=== PATIENT | male | born 1960 | race Caucasian/White ===

== ENCOUNTER 2017-04-26 09:46 | Emergency (ER) | payer MEDICARE, MEDICAID ==
[2017-04-26] MEDS ORDERED: ACETAMINOPHEN 325 MG TABLET PO ONE (09:57)
[2017-04-26] MEDS ORDERED: ACETAMINOPHEN 325 MG TABLET ONE (09:58)
--- NOTE | 2017-04-26 10:03 | ERNOTE ---
Back Pain ER HPI Date of Service: 04/26/17 Presenting Symptoms: other - back pain Time Seen by Provider: 04/26/17 09:52 Source: patient, family Exam Limitations: no limitations Immunizations: IMMUNIZATION HX History of Influenza Vaccine Yes Allergies/Adverse Reactions: Allergies No Known Allergies Allergy (Verified 04/26/17 09:51) Home Medications: HOME MEDICATIONS Albuterol Sulfate [Albuterol Sulfate 2.5 MG/3 ML] 2.5 mg IH Q4H 04/26/17 [Last Taken Unknown] Aspirin 81 mg PO BID 04/26/17 [Last Taken Unknown] Calcium Carbonate [Calcium] 600 mg PO DAILY 04/26/17 [Last Taken Unknown] Cetirizine HCl [Zyrtec] 10 mg PO DAILY 04/26/17 [Last Taken Unknown] Docusate Sodium 100 mg PO BID 04/26/17 [Last Taken Unknown] Fluticasone Propionate [Flovent Hfa] 220 mcg IH BID 04/26/17 [Last Taken Unknown ] Levofloxacin [Levaquin] 500 mg PO DAILY #9 tab 04/26/17 [Last Taken Unknown] Montelukast Sodium [Singulair] 10 mg PO DAILY 04/26/17 [Last Taken Unknown] Ranitidine HCl [Zantac] 150 mg PO BID 04/26/17 [Last Taken Unknown] metFORMIN HCL [Glucophage] 850 mg PO BIDWM 04/26/17 [Last Taken Unknown] Narrative: Patient presents to the ED with upper back pain along the spine this mornign. He localizes it to the left back. Hurts to move and touch the area but not to breath. No CP or SOB. no abdominal pain. no urinary Sx. pain moderate with turning. Will get some occasional pains here but this seems worse. No falls or trauma. No fever or cough. No N/T/W. Timing: Reports: constant Quality/Severity: Reports: moderate Location of pain: Reports: upper back. Denies: radiating to rt thigh/leg, radiating to lf thigh/leg Activities at Onset: Reports: none Recent Injury?: Reports: no Possible Precipitating Factor: Reports: none Modifying Factors - (Improves): Reports: other - rest Modifying Factors - (Worsens): Reports: movement to right, movement to left. Denies: cough/deep breaths Associated Symptoms: Denies: fever/chills, constipation/incontinence, nausea/ vomiting, problems urinating, difficulty walking, numbess/weakness in legs Prior Treament: Denies: recently seen Review of Systems - Review of Systems Constitutional: Absent: fever ENT: Absent: sore throat Respiratory: Absent: shortness of breath, cough Cardiology: Absent: chest pain Gastrointestinal/Abdominal: Absent: abdominal pain Genitourinary: Absent: dysuria Musculoskeletal: Present: See HPI Skin: Absent: rash Neurological: Absent: weakness, numbness, tingling - Patient's Past Medical History Patient History - Cancer: No Hx of Cancer Patient History - Surgical Procedures: Gastric Bypass, Total Knee Replacement - Family History Father Family History - Medical: Diabetes Type 2 Insulin Dependent, Depression Family History - Cardiac/Respiratory: Hypertension Family History - Cancer: Melanoma Mother Family History - Medical: Anxiety, Depression Family History - Cardiac/Respiratory: Hypertension Family History - Cancer: No pertinent family hx - Social History Living Situations: home Psych History: No pertinent hx Alcohol Use: none Drug Use: none - Immunizations History of Influenza Vaccine: Yes Physical Exam - Physical Exam General Appearance: Present: alert, no apparent distress Head Exam: Present: normal inspection, no evidence of injury Eye Exam: Normal inspection: bilateral, PERRL: bilateral Ears, Nose, Throat: Present: normal ENT inspection Neck: Absent: tender posterior midline Respiratory: Present: no respiratory distress, normal breath sounds, no accessory muscle use, lungs clear Cardiovascular/Chest: Present: regular rate, rhythm, normal peripheral pulses Gastrointestinal/Abdominal: Present: normal bowel sounds, nontender, nondistended, soft Back Exam: Present: other - scoliosis noted. Old scar from spinal surgery. Thre is completeyl reproducible tendenress left paraspinal musculature. Palpation here completely reproduces his pain. Clinically this is muscular pain. No spinal tendenress. Extremity Exam: Present: normal inspection Neurological Exam: Present: alert, no motor/sensory deficits, other - walks with a cane but no clear acute focal motor or sensory deficits/ Skin Exam: Present: normal color, warm/dry, other - no shingles. Absent: skin rash ED Progress - Results and Orders Patient's Lab Results:: I have reviewed the patient's lab results. - Vital Signs Patient's Vital Signs:: I have reviewed the patient's vital signs. Vital Signs: Vital Signs 04/26/17 09:49 Temperature 36.0 C L Pulse Rate 70 Respiratory 12 Rate Blood Pressure 215/104 O2 Sat by Pulse 96 Oximetry - EKG EKG: NSR EKG read: Interp. by me EKG Comments: NSR rate 61. No evidence of STEMI. No ischemic changes. - X-Ray X-Ray #1 X-Ray: chest Interpretation: Interp. by me X-ray Comments: I reviewed official radiology report. - Progress/Reassessment Chief Complaint: Back Pain Progress Note-Subjective: 04/26/17 11:04 Pneumonia on CXR, will treat with ABx. No hypoxia, distress, sepsis or other acute life threat found. Stable for outpatient management. I discussed warning signs and reasons to return as well as the need for close f/u. Departure Clinical Impression: Back pain, Pneumonia - Departure Disposition: Home self-care Condition: Stable Instructions: Community-Acquired Pneumonia, Adult, [id number] Additional Instructions: Rest. Fluids. Follow-up with your doctor within 3 days for a re-check. Return for trouble breathing or if your condition worsens or changes in any way. Referrals: Tim Sharp MD [Primary Care Provider] - Prescriptions: Levofloxacin [Levaquin] 500 mg PO DAILY #9 tab
[2017-04-26 10:10] LABS: Hematocrit 36.7 % (42.0-52.0); Hemoglobin 11.6 gm/dL (13.5-18.0); Mean Cell Volume 78.9 fl (78-100); Mean Corpuscular Hemoglobin 24.9 pg (27-31); Mean Corpuscular Hgb Conc 31.6 g/dl (32-36); Mean Platelet Volume 8.4 fl (6.0-9.5); Neutrophil # 5.6 K/mm3 (1.3-6.0); Neutrophil % 65.4 % (42-75.0); Platelet Count 255 K/mm3 (150-450); Red Blood Count 4.65 M/mm3 (4.7-6.0); Red Cell Distribution Width 18.4 % (11.5-14.0); White Blood Count 8.5 K/mm3 (4.0-10.5)
[2017-04-26 10:32] LABS: ALT 27 U/L (19-67); AST 20 U/L (0-48); Albumin * 4.1 gm/dl (3.4-5.0); Alkaline Phosphatase * 77 U/L (50-170); Anion Gap 11.7 mmol/L (6.8-13.8); BUN/Creatinine Ratio 15.7 (9.0-21.6); Bilirubin, Total 0.3 mg/dL (0.0-1.1); Blood Urea Nitrogen 8 mg/dL (6-23); Ca. Corrected For Albumin 8.9 mg/dL (8.4-10.2); Calcium * 9.3 mg/dL (7.9-10.9); Carbon Dioxide 29.4 mmol/L (24-32.6); Chloride 97 mmol/L (97-106); Glucose * 101 mg/dL (70-110); Potassium 4.1 mmol/L (3.4-4.6); Sodium 134 mmol/L (132-142); Total Protein 7.8 gm/dL (6.2-8.2)
[2017-04-26 10:33] LABS: Troponin I Less than 0.017 ng/ml (0.00-0.10)
[2017-04-26 10:50] VITALS: BP 192/88
[2017-04-26] MEDS ORDERED: LEVOFLOXACIN 500 MG TABLET PO ONE (11:03)
[2017-04-26] MEDS ORDERED: LEVOFLOXACIN 500 MG TABLET ONE (11:06)
== END 2017-04-26 11:11 | disposition home or self-care (01) ==
LOC: ER 09:46
DX: J18.9 Pneumonia, unspecified organism (principal); M54.6 Pain in thoracic spine

== ENCOUNTER 2017-10-23 07:40 | Observation (INO) | payer MEDICAID, MEDICARE ==
--- NOTE | 2017-10-23 08:17 | ERNOTE ---
Medical Problem HPI - General Chief Complaint: General Assessment Time Seen by Provider: 10/23/17 07:59 Source: family Exam Limitations: other - Immun/Allergies/Home Medications Immunizations: IMMUNIZATION HX Immunizations Up to Date Yes History of Influenza Vaccine Yes Hx Pneumococcal Vaccination More Information Required Allergies/Adverse Reactions: Allergies No Known Allergies Allergy (Verified 10/23/17 07:49) Home Medications: HOME MEDICATIONS Aspirin 81 mg PO BID 04/26/17 [Last Taken 08/28/17] Cetirizine HCl [Zyrtec] 10 mg PO HS 04/26/17 [Last Taken 08/27/17] Docusate Sodium 100 mg PO BID PRN 04/26/17 [Last Taken 08/28/17] Fluticasone Propionate [Flovent Hfa] 220 mcg IH BID 04/26/17 [Last Taken ] Ranitidine HCl [Zantac] 150 mg PO BID 04/26/17 [Last Taken 08/28/17] metFORMIN HCL [Glucophage] 850 mg PO BIDWM 04/26/17 [Last Taken 08/28/17] Calcium Carbonate/Vitamin D3 [Calcium 500-Vit D3 200 Tablet] 1 ea PO DAILY 05/17 [Last Taken 08/28/17 08:00] Metoprolol Tartrate [Lopressor] 100 mg PO BID 05/17/17 [Last Taken 08/28/17 08: 00] Multivitamin [Multivitamins] 1 ea PO DAILY 05/17/17 [Last Taken 08/28/17 08:00] amLODIPine BESYLATE [Norvasc] 10 mg PO DAILY 05/17/17 [Last Taken 08/28/17 08:00 ] Albuterol Sulfate/Ipratropium [Duoneb 2.5-0.5MG/3ML Soln] 3 ml IH Q4HRT #60 nebu 05/20/17 [Last Taken 08/28/17] Furosemide 20 mg PO DAILY 06/30/17 [Last Taken 08/28/17 08:00] Potassium Chloride [Klor-Con 10] 10 meq PO DAILY 06/30/17 [Last Taken 08/28/17 08:00] Acetaminophen [Tylenol] 650 mg PO Q4H PRN tab 08/30/17 [Last Taken Unknown] Azithromycin [Zithromax] 250 mg PO DAILY #3 tab 08/30/17 [Last Taken Unknown] Cefdinir [Omnicef] 300 mg PO BID #16 cap 08/30/17 [Last Taken Unknown] polysaccharide iron complex 150 mg iron capsule 150 mg PO DAILY cap 09/01/17 [ Last Taken Unknown] sennosides 8.6 mg tablet 17.2 mg PO DAILY PRN tab 09/01/17 [Last Taken Unknown] sodium chloride 3 % for nebulization 4 ml IH Q6H 09/20/17 [Last Taken Unknown] montelukast 10 mg tablet 10 mg PO HS 30 Days #30 tab 09/23/17 [Last Taken Unknown] - History of Present History Narrative: Patient has a history of Prader-Nazario, diabetes, and an aortic dissection. He has chronic respiratory failure (using O2 2-3 liters at night) and has been having recurrent bouts of pneumonia over the last six months, last treated with antibiotics in August. Per family the pneumonia is related to reflux and aspiration. He is currently waiting awaiting treatment for his aortic dissection at [place]. This morning the family noticed bloody discharge around the trach side and they are concerned that he might be developing pneumonia again as that has been an early sign in the past. They deny any significant cough, no fever, no shortness of breath. He seems to be less active and sleeping more Date (Duration): 10/23/17 Review of Systems - Narrative Narrative: limited by mental retardation - Review of Systems Constitutional: Present: fatigue. Absent: recent illness, fever ENT: Absent: nasal drainage, sore throat Respiratory: Present: See HPI. 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) Onset Date: ~08/31/15 Sleep apnea (Chronic) Anemia (Chronic) Onset Date: ~09/11/12 Diabetes mellitus (Chronic) Asthma (Chronic) Pickwickian syndrome (Chronic) Onset Date: ~09/11/12 Prader-Willi syndrome (Chronic) Onset Date: ~09/11/12 Aortic dissection Back pain CHF (congestive heart failure) Hx of gastric bypass Obstructive sleep apnea Pneumonia Recurrent pneumonia Tracheostomy in place Eating disorder Surgical History: Surgical History (Last Reviewed 10/23/17 @ 08:16 by Francia Salinas MD) Femur fracture H/O gastric bypass Onset Date: ~1975 H/O heart surgery Onset Date: ~04/29/17 H/O tracheostomy History of right knee joint replacement Family History: Family History (Last Reviewed 09/25/17 @ 10:57 by Tim Sharp MD) Other Father Diabetes, depression mother with Anxiety nd Hypertension mother with depression Social History: Preferred Language Egyptian Abuse History No History of abuse Psych History No pertinent hx Alcohol Use none Drug Use none Physical Exam - Physical Exam General Appearance: Present: obese, sleeping/easy to arouse Head Exam: Present: normal inspection Eye Exam: Normal inspection: bilateral Ears, Nose, Throat: Present: normal pharynx Respiratory: Present: no respiratory distress, lungs clear, decreased breath sounds Cardiovascular/Chest: Present: regular rate, rhythm, no murmur Gastrointestinal/Abdominal: Present: nontender Neurological Exam: Present: alert Skin Exam: Present: normal color, warm/dry ED Progress - Results and Orders Patient's Lab Results:: I have reviewed the patient's lab results. - Vital Signs Patient's Vital Signs:: I have reviewed the patient's vital signs. - when sleeping his O2 sat drops to 88-89% Vital Signs: Vital Signs 10/23/17 07:45 10/23/17 07:48 10/23/17 08:04 Temperature 36.1 C Pulse Rate 89 89 83 Respiratory Rate 14 14 14 Blood Pressure 136/74 136/74 O2 Sat by Pulse Oximetry 94 94 90 L - X-Ray X-Ray #1 X-Ray: chest - large left sided pneumonia Interpretation: Interp. by me - Progress/Reassessment Chief Complaint: General Assessment Progress Note-Subjective: 10/23/17 09:26 discussion with family about Xray and labs, offered admission, family agreed long discussion about code status, as patient has ruptured aortic aneurysm, family ready to sign DNR orders 10/23/17 09:[address] Rowland 10/23/17 09:[address] Rowland, okay to admit for observation, will start rocephin and zithromax going by sensitivities of sputum culture from August Clinical Impression: Aortic aneurysm with dissection, Prader-Willi syndrome, Pickwickian syndrome Pneumonia Qualifiers: Pneumonia type: due to unspecified organism Laterality: left Lung location: upper lobe of lung Qualified Code(s): J18.1 - Lobar pneumonia, unspecified organism Respiratory failure with hypoxia Qualifiers: Chronicity: chronic Qualified Code(s): J96.11 - Chronic respiratory failure with hypoxia - Departure Disposition: Still a patient Condition: Good
[2017-10-23 08:30] LABS: Hemoglobin 12.1 gm/dL (13.5-18.0); Mean Cell Volume 87.8 fl (78-100); Mean Corpuscular Hemoglobin 27.3 pg (27-31); Mean Platelet Volume 8.4 fl (8-11.3); Neutrophil # 16.3 K/mm3 (1.3-6.0); Neutrophil % 91.7 % (42-75.0); Platelet Count 239 K/mm3 (150-450); Red Blood Count 4.44 M/mm3 (4.7-6.0); Red Cell Distribution Width 14.8 % (11.5-14.0); White Blood Count 17.7 K/mm3 (4.0-10.5)
[2017-10-23 08:50] LABS: Albumin * 3.4 gm/dl (3.4-5.0); Anion Gap 8.2 mmol/L (6.8-13.8); Bilirubin, Total 0.5 mg/dL (0.0-1.1); CRP 1.4 mg/dL (0.0-0.9); Ca. Corrected For Albumin 8.6 mg/dL (8.4-10.2); Calcium * 8.4 mg/dL (7.9-10.9); Carbon Dioxide 31.7 mmol/L (24-32.6); Potassium 3.9 mmol/L (3.4-4.6); Total Protein 7.1 gm/dL (6.2-8.2)
[2017-10-23] MEDS ORDERED: AZITHROMYCIN 250 MG TABLET PO STA (09:47)
[2017-10-23] MEDS ORDERED: AZITHROMYCIN 250 MG TABLET ONE (09:52)
[2017-10-23] MEDS ORDERED: ALBUTEROL SULFATE/IPRATROPIUM 3 ML NEBU IH ONE (18:24)
[2017-10-23] MEDS ORDERED: DOCUSATE SODIUM 100 MG CAPSULE PO PRN (18:31)
[2017-10-23] MEDS ORDERED: ACETAMINOPHEN 325 MG TABLET PO PRN (18:31)
[2017-10-23] MEDS ORDERED: SENNOSIDES 8.6 MG TABLET PO PRN (18:31)
[2017-10-23] MEDS ORDERED: FUROSEMIDE 40 MG TABLET ONE (19:01)
[2017-10-23] MEDS ORDERED: amLODIPine BESYLATE 5 MG TABLET ONE (19:03)
[2017-10-23] MEDS: POTASSIUM CHLORIDE 10 MEQ TABLET.SA PO SCH (19:06)
[2017-10-23] MEDS: FUROSEMIDE 20 MG TABLET PO SCH (19:07)
[2017-10-23] MEDS: IRON POLYSACCHARIDE COMPLEX 1 CAP CAPSULE PO SCH (19:08)
[2017-10-23] MEDS: amLODIPine BESYLATE 10 MG TABLET PO SCH (19:09)
[2017-10-23] MEDS: FAMOTIDINE 20 MG TABLET PO SCH (19:09)
[2017-10-23] MEDS: ALBUTEROL SULFATE/IPRATROPIUM 3 ML NEBU IH SCH ×2 (19:56→22:38)
[2017-10-23] MEDS: BUDESONIDE 0.5 MG/2 ML VIAL.NEB IH SCH (19:57)
[2017-10-23] MEDS: SODIUM CHLORIDE FOR INHALATION 4 ML VIAL.NEB IH SCH (20:24)
[2017-10-23] MEDS ORDERED: MONTELUKAST SODIUM 10 MG TABLET PO SCH (21:00)
[2017-10-23] MEDS ORDERED: LORATADINE 10 MG TABLET PO SCH (21:00)
[2017-10-23] MEDS: ASPIRIN 81 MG TAB.CHEW PO SCH (21:24)
[2017-10-23] MEDS: METOPROLOL TARTRATE 50 MG TABLET PO SCH (21:25)
--- NOTE | 2017-10-23 22:58 | HP ---
Chief Complaint - Chief Complaint Date of Service: 10/23/17 Time of Service: 18:00 Chief Complaint: Bloody sputum History of Present Illness: Philip is a 57 yo male with a chronic trach that was brought to the [facility] ER with bloody sputum from his trach. He and family report increased sputum over the last few days and today they first noticed bloody sputum. He has had this in the past and it usually meant pneumonia, therefore they brought him to the ER. Chest xray in the ER does indicate left lung pneumonia and he has elevated WBC of 17k. No fever or chills. 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) Onset Date: ~08/31/15 Sleep apnea (Chronic) Anemia (Chronic) Onset Date: ~09/11/12 Diabetes mellitus (Chronic) Asthma (Chronic) Pickwickian syndrome (Chronic) Onset Date: ~09/11/12 Prader-Willi syndrome (Chronic) Onset Date: ~09/11/12 Aortic dissection Back pain CHF (congestive heart failure) Hx of gastric bypass Obstructive sleep apnea Pneumonia Recurrent pneumonia Tracheostomy in place Eating disorder Surgical History: Surgical History (Last Reviewed 10/31/17 @ 10:04 by Tim Sharp MD) Femur fracture H/O gastric bypass Onset Date: ~1975 H/O heart surgery Onset Date: ~04/29/17 H/O tracheostomy History of right knee joint replacement Family History: Family History (Last Reviewed 10/31/17 @ 10:04 by Tim Sharp MD) Other Father Diabetes, depression mother with Anxiety nd Hypertension mother with depression Social History: Patient Lives/Resources With Parents Utilized Preferred Language Ethiopian Do you have any yazidi or Yes: Adventism cultural preference? Smoking Status Never smoker Have you smoked in the past 12 No months Do you dip or chew tobacco No Abuse History No History of abuse Psych History No pertinent hx Alcohol Use none Drug Use none Review Of Systems (GEN) - Review of Systems Generalized/Overall Review: Present: Weakness. Absent: Chills, Fever EENTM: Present: No Symptoms Reported Respiratory: Present: Cough, Shortness of Breath Cardiac: Absent: Chest Pain, Edema Abdominal: Present: No Symptoms Reported Genitourinary: Present: No Symptoms Reported Musculoskeletal: Present: No Symptoms Reported Neurological: Present: No Symptoms Reported Skin: Present: No Symptoms Reported Endocrine: Present: No Symptoms Reported Immunizations: IMMUNIZATION HX Immunizations Up to Date Yes History of Influenza Vaccine Yes Hx Pneumococcal Vaccination More Information Required Allergies/Adverse Reactions: Allergies Allergy/AdvReac Type Severity Reaction Status Date / Time No Known Allergies Allergy Verified 10/31/17 09:42 Home Medications: HOME MEDICATIONS Aspirin 81 mg PO BID 04/26/17 [Last Taken 10/22/17] Cetirizine HCl [Zyrtec] 10 mg PO HS 04/26/17 [Last Taken 10/22/17] Docusate Sodium 100 mg PO BID PRN 04/26/17 [Last Taken 10/22/17] Fluticasone Propionate [Flovent Hfa] 220 mcg IH BID 04/26/17 [Last Taken ] Ranitidine HCl [Zantac] 150 mg PO BID 04/26/17 [Last Taken 10/22/17] metFORMIN HCL [Glucophage] 850 mg PO BIDWM 04/26/17 [Last Taken 10/22/17] Calcium Carbonate/Vitamin D3 [Calcium 500-Vit D3 200 Tablet] 1 ea PO DAILY 05/17 [Last Taken 10/22/17] Metoprolol Tartrate [Lopressor] 100 mg PO BID 05/17/17 [Last Taken 10/22/17] Multivitamin [Multivitamins] 1 ea PO DAILY 05/17/17 [Last Taken 10/22/17] amLODIPine BESYLATE [Norvasc] 10 mg PO DAILY 05/17/17 [Last Taken 10/22/17] Albuterol Sulfate/Ipratropium [Duoneb 2.5-0.5MG/3ML Soln] 3 ml IH Q4HRT #60 nebu 05/20/17 [Last Taken 10/22/17] Potassium Chloride [Klor-Con 10] 10 meq PO DAILY 06/30/17 [Last Taken 10/22/17] Acetaminophen [Tylenol] 650 mg PO Q4H PRN tab 08/30/17 [Last Taken Unknown] polysaccharide iron complex 150 mg iron capsule 150 mg PO DAILY cap 09/01/17 [ Last Taken 10/22/17] sennosides 8.6 mg tablet 17.2 mg PO DAILY PRN tab 09/01/17 [Last Taken 10/22/17 ] sodium chloride 3 % for nebulization 4 ml IH Q6H 09/20/17 [Last Taken 10/22/17] Cefdinir [Omnicef] 300 mg PO BID #20 cap 10/24/17 [Last Taken Unknown] furosemide 20 mg tablet 20 mg PO DAILY #30 tab 10/31/17 [Last Taken Unknown] montelukast 10 mg tablet 10 mg PO HS 30 Days #30 tab 10/31/17 [Last Taken Unknown] Exam - Exam Vital Signs: Vital Signs - Last Taken Temp 37 C 10/23/17 19:22 Pulse 59 L 10/23/17 22:48 Resp 20 10/23/17 22:48 BP 117/70 10/23/17 21:25 Pulse Ox 97 10/23/17 22:38 Constitutional: Present: Alert, Oriented x3, Cooperative ENT Exam: Present: hearing grossly normal Eye Exam: bilateral eye: normal inspection Neck: Present: other - trach in place, clean Respiratory: Present: decreased breath sounds - left lung, crackles - left lung Cardiovascular/Chest: Present: regular rate, rhythm, no murmur Abdomen: Present: Normal bowel sounds, soft, nontender, nondistended Skin Exam: Present: normal color, warm/dry, no cyanosis Eye contact: Present: cooperative, good eye contact Thoughts: Present: normal thought pattern, no apparent hallucination Diagnostic Studies: Abnormal Lab Results 10/23/17 10/23/17 Range/Units 08:13 08:13 WBC 17.7 H (4.0-10.5) K/mm3 RBC 4.44 L (4.7-6.0) M/mm3 Hgb 12.1 L (13.5-18.0) gm/dL Hct 39.0 L (42.0-52.0) % MCHC 31.0 L (32-36) g/dl RDW 14.8 H (11.5-14.0) % Immature Gran % (Auto) 0.50 H (0.001-0.429) % Immature Gran # (Auto) 0.09 H (0.000-0.0310) K/mm3 Neutrophils % 91.7 H (42-75.0) % Lymphocytes % 3.5 L (20-51) % Neutrophils # 16.3 H (1.3-6.0) K/mm3 Lymphocytes # 0.62 L (1.5-3.5) k/mm3 Est GFR (Non-Af Amer) 139 H (60-130) mL/min Random Glucose 139 H (70-110) mg/dL C-Reactive Prot, Quant 1.4 H (0.0-0.9) mg/dL B-Natriuretic Peptide 1229 H (5-175) pg/mL Microbiology 10/23/17 Unknown Gram Stain - Final Sputum Laboratory Results WBC 17.7 K/mm3 (4.0-10.5) H 10/23/17 08:13 RBC 4.44 M/mm3 (4.7-6.0) L 10/23/17 08:13 Hgb 12.1 gm/dL (13.5-18.0) L 10/23/17 08:13 Hct 39.0 % (42.0-52.0) L 10/23/17 08:13 MCV 87.8 fl (78-100) 10/23/17 08:13 MCH 27.3 pg (27-31) 10/23/17 08:13 MCHC 31.0 g/dl (32-36) L 10/23/17 08:13 RDW 14.8 % (11.5-14.0) H 10/23/17 08:13 Plt Count 239 K/mm3 (150-450) 10/23/17 08:13 MPV 8.4 fl (8-11.3) 10/23/17 08:13 Immature Gran % (Auto) 0.50 % (0.001-0.429) H 10/23/17 08:13 Immature Gran # (Auto) 0.09 K/mm3 (0.000-0.0310) H 10/23/17 08:13 Neutrophils % 91.7 % (42-75.0) H 10/23/17 08:13 Lymphocytes % 3.5 % (20-51) L 10/23/17 08:13 Monocytes % 3.9 % (0.0-9) 10/23/17 08:13 Eosinophils % 0.1 % (0.0-3.0) 10/23/17 08:13 Basophils % 0.3 % (0.0-1.0) 10/23/17 08:13 Nucleated RBC % 0.0 k/mm3 (0-1) 10/23/17 08:13 Neutrophils # 16.3 K/mm3 (1.3-6.0) H 10/23/17 08:13 Lymphocytes # 0.62 k/mm3 (1.5-3.5) L 10/23/17 08:13 Monocytes # 0.7 k/mm3 (0.0-1.0) 10/23/17 08:13 Eosinophils # 0.0 k/mm3 (0.0-0.7) 10/23/17 08:13 Absolute Basophils 0.1 k/mm3 (0.0-0.1) 10/23/17 08:13 Sodium 136 mmol/L (132-142) 10/23/17 08:13 Plasma Sodium 137 mmol/L (130-142) 10/23/17 08:13 Potassium 3.9 mmol/L (3.4-4.6) 10/23/17 08:13 Chloride 100 mmol/L (97-106) 10/23/17 08:13 Carbon Dioxide 31.7 mmol/L (24-32.6) 10/23/17 08:13 Anion Gap 8.2 mmol/L (6.8-13.8) 10/23/17 08:13 BUN 12 mg/dL (6-23) 10/23/17 08:13 Creatinine 0.63 mg/dL (0.4-1.4) 10/23/17 08:13 Est GFR (Non-Af Amer) 139 mL/min (60-130) H 10/23/17 08:13 BUN/Creatinine Ratio 19.0 (9.0-21.6) 10/23/17 08:13 Random Glucose 139 mg/dL (70-110) H 10/23/17 08:13 Calcium 8.4 mg/dL (7.9-10.9) 10/23/17 08:13 Calcium Adj for Albumin 8.6 mg/dL (8.4-10.2) 10/23/17 08:13 Total Bilirubin 0.5 mg/dL (0.0-1.1) 10/23/17 08:13 AST 16 U/L (0-48) 10/23/17 08:13 ALT 21 U/L (19-67) 10/23/17 08:13 Alkaline Phosphatase 86 U/L (50-170) 10/23/17 08:13 C-Reactive Prot, Quant 1.4 mg/dL (0.0-0.9) H 10/23/17 08:13 B-Natriuretic Peptide 1229 pg/mL (5-175) H 10/23/17 08:13 Total Protein 7.1 gm/dL (6.2-8.2) 10/23/17 08:13 Albumin 3.4 gm/dl (3.4-5.0) 10/23/17 08:13 Assessment/Plan - Narrative Narrative: Philip is a 57 yo male with dependent tracheostomy who has left lung pneumonia based on chest xray and leukocytosis of 17k. Will treat with rocephin/ azithromycin and nebulizer treatment. He overall does not look to be in any respiratory distress and overall looks well. Therefore will admit to obeservation. Will recheck CBC tomorrow. If he continues to do well and WBC is improving, will plan to discharge to home. - Assessment/Plan (1) Pneumonia Problem: Acute Qualifiers: Pneumonia type: due to unspecified organism Laterality: left Lung location: lower lobe of lung Qualified Code(s): J18.1 - Lobar pneumonia, unspecified organism (2) Tracheostomy dependence Problem: Chronic
[2017-10-24] MEDS: SODIUM CHLORIDE FOR INHALATION 4 ML VIAL.NEB IH SCH ×2 (00:27→06:00)
[2017-10-24] MEDS: ALBUTEROL SULFATE/IPRATROPIUM 3 ML NEBU IH SCH ×2 (02:04→06:00)
[2017-10-24] MEDS: BUDESONIDE 0.5 MG/2 ML VIAL.NEB IH SCH (06:00)
[2017-10-24] MEDS: FAMOTIDINE 20 MG TABLET PO SCH (07:24)
[2017-10-24 08:35] LABS: Hematocrit 39.9 % (42.0-52.0); Hemoglobin 12.2 gm/dL (13.5-18.0); Mean Cell Volume 89.1 fl (78-100); Mean Corpuscular Hemoglobin 27.2 pg (27-31); Mean Corpuscular Hgb Conc 30.6 g/dl (32-36); Mean Platelet Volume 8.5 fl (8-11.3); Neutrophil # 6.8 K/mm3 (1.3-6.0); Neutrophil % 73.9 % (42-75.0); Platelet Count 211 K/mm3 (150-450); Red Blood Count 4.48 M/mm3 (4.7-6.0); Red Cell Distribution Width 14.9 % (11.5-14.0); White Blood Count 9.2 K/mm3 (4.0-10.5)
[2017-10-24] MEDS: ASPIRIN 81 MG TAB.CHEW PO SCH (08:37)
[2017-10-24] MEDS: FUROSEMIDE 20 MG TABLET PO SCH (08:37)
[2017-10-24] MEDS: IRON POLYSACCHARIDE COMPLEX 1 CAP CAPSULE PO SCH (08:37)
[2017-10-24] MEDS: amLODIPine BESYLATE 10 MG TABLET PO SCH (08:37)
[2017-10-24] MEDS: POTASSIUM CHLORIDE 10 MEQ TABLET.SA PO SCH (08:37)
[2017-10-24] MEDS: METOPROLOL TARTRATE 50 MG TABLET PO SCH (08:37)
[2017-10-24 08:59] LABS: Albumin * 3.3 gm/dl (3.4-5.0); Anion Gap 9.7 mmol/L (6.8-13.8); BUN/Creatinine Ratio 14.3 (9.0-21.6); Bilirubin, Total 0.5 mg/dL (0.0-1.1); Ca. Corrected For Albumin 8.9 mg/dL (8.4-10.2); Calcium * 8.7 mg/dL (7.9-10.9); Carbon Dioxide 31.1 mmol/L (24-32.6); Potassium 3.8 mmol/L (3.4-4.6); Total Protein 7.2 gm/dL (6.2-8.2)
[2017-10-24] MEDS ORDERED: CALCIUM CARBONATE/VITAMIN D3 1 TAB TABLET PO SCH (09:00)
[2017-10-24] MEDS ORDERED: AZITHROMYCIN 250 MG TABLET PO SCH (09:00)
[2017-10-24] MEDS ORDERED: MULTIVITAMINS 1 CAP CAPSULE PO SCH (09:00)
--- NOTE | 2017-10-24 10:15 | DS ---
(1) Pneumonia Problem: Acute Qualifiers: Pneumonia type: due to unspecified organism Laterality: left Lung location: upper lobe of lung Qualified Code(s): J18.1 - Lobar pneumonia, unspecified organism Description of Stay: Philip is a 57 yo male with chronic trach who was admitted for community acquired pneumonia. His vitals were stable and he was overall feeling well, but due to his chronic trach and high risk for aspiration he was admitted to observation while antibiotics were initiated. He did well. Vitals remained normal, leukocytosis resolved, and he continued to feel well. He will be discharged to home and will complete the course of antibiotics with azithromycin and cefdinir. Procedures Performed: none Results and Findings: Pending Mircobiology Results 10/23/17 08:30 Blood Blood Culture - Preliminary NO GROWTH 24 HOURS 10/23/17 08:13 Blood Blood Culture - Preliminary NO GROWTH 24 HOURS 10/23/17 Unknown Suctioned Sputum Sputum Culture - Preliminary No Pathogens Isolated Lab Pending Results 10/23/17 08:13: WBC 17.7 H, RBC 4.44 L, Hgb 12.1 L, Hct 39.0 L, MCV 87.8, MCH 27.3, MCHC 31.0 L, RDW 14.8 H, Plt Count 239, MPV 8.4, Immature Gran % (Auto) 0.50 H, Immature Gran # (Auto) 0.09 H, Neutrophils % 91.7 H, Lymphocytes % 3.5 L , Monocytes % 3.9, Eosinophils % 0.1, Basophils % 0.3, Nucleated RBC % 0.0, Neutrophils # 16.3 H, Lymphocytes # 0.62 L, Monocytes # 0.7, Eosinophils # 0.0, Absolute Basophils 0.1 10/23/17 08:13: Sodium 136, Plasma Sodium 137, Potassium 3.9, Chloride 100, Carbon Dioxide 31.7, Anion Gap 8.2, BUN 12, Creatinine 0.63, Est GFR (Non-Af Amer) 139 H, BUN/Creatinine Ratio 19.0, Random Glucose 139 H, Calcium 8.4, Calcium Adj for Albumin 8.6, Total Bilirubin 0.5, AST 16, ALT 21, Alkaline Phosphatase 86, C-Reactive Prot, Quant 1.4 H, B-Natriuretic Peptide 1229 H, Total Protein 7.1, Albumin 3.4 10/24/17 08:18: WBC 9.2 D, RBC 4.48 L, Hgb 12.2 L, Hct 39.9 L, MCV 89.1, MCH 27.2, MCHC 30.6 L, RDW 14.9 H, Plt Count 211, MPV 8.5, Immature Gran % (Auto) 0.50 H, Immature Gran # (Auto) 0.05 H, Neutrophils % 73.9, Lymphocytes % 17.3 L , Monocytes % 5.7, Eosinophils % 2.3, Basophils % 0.3, Nucleated RBC % 0.0, Neutrophils # 6.8 H, Lymphocytes # 1.59, Monocytes # 0.5, Eosinophils # 0.2, Absolute Basophils 0.0 10/24/17 08:18: Sodium 134, Plasma Sodium 136, Potassium 3.8, Chloride 97, Carbon Dioxide 31.1, Anion Gap 9.7, BUN 10, Creatinine 0.70, Est GFR (Non-Af Amer) 123, BUN/Creatinine Ratio 14.3, Random Glucose 214 H D, Calcium 8.7, Calcium Adj for Albumin 8.9, Total Bilirubin 0.5, AST 16, ALT 23, Alkaline Phosphatase 82, Total Protein 7.2, Albumin 3.3 L Discharge Location: Home Disposition: Home self-care Condition: Good Discharge Activity: Activity as tolerated Discharge Diet: General/regular food Referrals: Tim Sharp MD [Primary Care Provider] - One Week Problem Oriented Discharge Instructions to Patient/Family: Community-Acquired Pneumonia, Adult, [id number] Prescriptions (Any new or edited meds): Azithromycin [Zithromax] 250 mg PO DAILY #4 tab Cefdinir [Omnicef] 300 mg PO BID #20 cap Complete Home Medications List: Complete Home Medication List: Aspirin 81 mg PO BID 04/26/17 Cetirizine HCl [Zyrtec] 10 mg PO HS 04/26/17 Docusate Sodium 100 mg PO BID PRN 04/26/17 Fluticasone Propionate [Flovent Hfa] 220 mcg IH BID 04/26/17 Ranitidine HCl [Zantac] 150 mg PO BID 04/26/17 metFORMIN HCL [Glucophage] 850 mg PO BIDWM 04/26/17 Calcium Carbonate/Vitamin D3 [Calcium 500-Vit D3 200 Tablet] 1 ea PO DAILY 05/17 Metoprolol Tartrate [Lopressor] 100 mg PO BID 05/17/17 Multivitamin [Multivitamins] 1 ea PO DAILY 05/17/17 amLODIPine BESYLATE [Norvasc] 10 mg PO DAILY 05/17/17 Albuterol Sulfate/Ipratropium [Duoneb 2.5-0.5MG/3ML Soln] 3 ml IH Q4HRT #60 nebu 05/20/17 Furosemide 20 mg PO DAILY 06/30/17 Potassium Chloride [Klor-Con 10] 10 meq PO DAILY 06/30/17 Acetaminophen [Tylenol] 650 mg PO Q4H PRN tab 08/30/17 Azithromycin [Zithromax] 250 mg PO DAILY #3 tab 08/30/17 polysaccharide iron complex 150 mg iron capsule 150 mg PO DAILY cap 09/01/17 sennosides 8.6 mg tablet 17.2 mg PO DAILY PRN tab 09/01/17 sodium chloride 3 % for nebulization 4 ml IH Q6H 09/20/17 montelukast 10 mg tablet 10 mg PO HS 30 Days #30 tab 09/23/17 Azithromycin [Zithromax] 250 mg PO DAILY #4 tab 10/24/17 Cefdinir [Omnicef] 300 mg PO BID #20 cap 10/24/17
[2017-10-24 11:41] VITALS: BP 109/58
[2017-10-24] MEDS ORDERED: ALBUTEROL SULFATE/IPRATROPIUM 3 ML NEBU IH SCH (13:00)
== END 2017-10-24 12:30 | disposition home or self-care (01) ==
LOC: MS 07:40 → ER 07:40 → MS 10:22
PROVIDERS: ADMIT Family Medicine; ATTEND Family Medicine
DX: Z93.0 Tracheostomy status; I71.00 Dissection of unspecified site of aorta; J96.11 Chronic respiratory failure with hypoxia; Q87.1 Congenital malformation syndromes predominantly associated with short stature; J18.9 Pneumonia, unspecified organism; G47.33 Obstructive sleep apnea (adult) (pediatric); Z79.84 Long term (current) use of oral hypoglycemic drugs; E11.9 Type 2 diabetes mellitus without complications; I50.9 Heart failure, unspecified; Z68.41 Body mass index [BMI] 40.0-44.9, adult
CPT/HCPCS: 36415; 71020; 71046; 80053; 83519; 83880; 85025; 86140; 87040; 87070; 87205; 89220; 94640; 94664; 96365; 96366; 99284; G0378

== ENCOUNTER 2017-12-01 08:33 | Inpatient (IN) | payer MEDICAID, MEDICARE ==
[2017-12-01] MEDS ORDERED: ALBUTEROL SULFATE/IPRATROPIUM 3 ML NEBU IH ONE ×2 (08:51→08:55)
--- NOTE | 2017-12-01 08:57 | ERNOTE ---
<aMt Lopez - Last Filed: 12/01/17 09:52> Time Seen by Provider: 12/01/17 08:50 Stated Complaint: PNEUONIA Presenting Symptoms:: other - blood tinged sputum Source: patient, family Exam Limitations: no limitations Immunizations: IMMUNIZATION HX Immunizations Up to Date Yes History of Influenza Vaccine Yes Hx Pneumococcal Vaccination Yes Allergies/Adverse Reactions: Allergies No Known Allergies Allergy (Verified 10/31/17 09:42) Home Medications: HOME MEDICATIONS Aspirin 81 mg PO BID 04/26/17 [Last Taken 10/22/17] Cetirizine HCl [Zyrtec] 10 mg PO HS 04/26/17 [Last Taken 10/22/17] Docusate Sodium 100 mg PO BID PRN 04/26/17 [Last Taken 10/22/17] Fluticasone Propionate [Flovent Hfa] 220 mcg IH BID 04/26/17 [Last Taken 10/22/17] metFORMIN HCL [Glucophage] 850 mg PO BIDWM 04/26/17 [Last Taken 10/22/17] Calcium Carbonate/Vitamin D3 [Calcium 500-Vit D3 200 Tablet] 1 ea PO DAILY 05/17/17 [Last Taken 10/22/17] Metoprolol Tartrate [Lopressor] 100 mg PO BID 05/17/17 [Last Taken 10/22/17] Multivitamin [Multivitamins] 1 ea PO DAILY 05/17/17 [Last Taken 10/22/17] amLODIPine BESYLATE [Norvasc] 10 mg PO DAILY 05/17/17 [Last Taken 10/22/17] Albuterol Sulfate/Ipratropium [Duoneb 2.5-0.5MG/3ML Soln] 3 ml IH Q4HRT #60 nebu 05/20/17 [Last Taken 10/22/17] Potassium Chloride [Klor-Con 10] 10 meq PO DAILY 06/30/17 [Last Taken 10/22/17] Acetaminophen [Tylenol] 650 mg PO Q4H PRN tab 08/30/17 [Last Taken Unknown] polysaccharide iron complex 150 mg iron capsule 150 mg PO DAILY cap 09/01/17 [Last Taken 10/22/17] sennosides 8.6 mg tablet 17.2 mg PO DAILY PRN tab 09/01/17 [Last Taken 10/22/17] sodium chloride 3 % for nebulization 4 ml IH Q6H 09/20/17 [Last Taken 10/22/17] Cefdinir [Omnicef] 300 mg PO BID #20 cap 10/24/17 [Last Taken Unknown] furosemide 20 mg tablet 20 mg PO DAILY #30 tab 10/31/17 [Last Taken Unknown] montelukast 10 mg tablet 10 mg PO HS 30 Days #30 tab 10/31/17 [Last Taken Unknown] ranitidine 150 mg tablet 150 mg PO BID #60 tab 11/30/17 [Last Taken Unknown] - History of Present Ilness Narrative: Pt's parents state that he has begun to have some blood tinged sputum last night and seems to be increasing this morning. Timing: getting worse Severity: mild Frequency/Possible Cause: Reports: occasional episodes Modifying Factors - Improves: Reports: rest Modifying Factors - Worsens: Reports: coughing Associated Symptoms: Denies: chest pain/soreness, shortness of breath Review of Systems - Review of Systems Constitutional: Absent: recent illness, fever, chills EYE: Absent: vision changes ENT: Absent: nose congestion, nasal drainage Respiratory: Present: cough. 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) Onset Date: ~08/31/15 Sleep apnea (Chronic) Anemia (Chronic) Onset Date: ~09/11/12 Diabetes mellitus (Chronic) Asthma (Chronic) Pickwickian syndrome (Chronic) Onset Date: ~09/11/12 Prader-Willi syndrome (Chronic) Onset Date: ~09/11/12 Aortic dissection Back pain CHF (congestive heart failure) Obstructive sleep apnea Pneumonia Recurrent pneumonia Tracheostomy in place Eating disorder Surgical History: Surgical History (Last Reviewed 12/01/17 @ 08:56 by aMt Lopez DO) Femur fracture H/O gastric bypass Onset Date: ~1975 H/O heart surgery Onset Date: ~04/29/17 H/O tracheostomy History of right knee joint replacement Hx of gastric bypass Family History: Family History (Last Reviewed 12/01/17 @ 08:56 by Mat Lopez DO) Other Father Diabetes, depression mother with Anxiety nd Hypertension mother with depression Social History: Preferred Language [place] Citizen Do you have any rastafarian or No cultural preference? Smoking Status Never smoker Abuse History No History of abuse Psych History No pertinent hx Alcohol Use none Drug Use none Physical Exam - Physical Exam General Appearance: Present: wd/wn, alert, no apparent distress Head Exam: Present: normal inspection, no evidence of injury Eye Exam: Normal inspection: bilateral, PERRL: bilateral, EOMI: bilateral Ears, Nose, Throat: Present: normal ENT inspection Neck: Present: normal inspection, nontender, supple, full range of motion Respiratory: Present: no respiratory distress, no accessory muscle use, chest nontender, wheezing Cardiovascular/Chest: Present: regular rate, rhythm, no murmur Back Exam: Present: normal inspection, normal range of motion, no vertebral tenderness Extremity Exam: Present: normal inspection, normal range of motion Neurological Exam: Present: alert, oriented, normal mood/affect, no motor/sensory deficits Skin Exam: Present: normal color, warm/dry Lymphatic Exam: Present: no adenopathy ED Progress - Results and Orders Patient's Lab Results:: I have reviewed the patient's lab results. - Vital Signs Patient's Vital Signs:: I have reviewed the patient's vital signs. Vital Signs: Vital Signs 12/01/17 08:38 12/01/17 08:48 Temperature 36.4 C Pulse Rate 78 Respiratory Rate 26 H Blood Pressure 147/73 H O2 Sat by Pulse Oximetry 88 L 91 L - EKG EKG: NSR, no ST T wave changes EKG read: Interp. by ca - Progress/Reassessment Chief Complaint: Upper Respiratory Symptoms - Transfer of Care Physician Sign Out: Mat Lopez Receiving Physician: Emeka Mary Pending Results: Labs, X-ray results Expected Disposition: Discharge Departure Clinical Impression: Bronchitis Left lower lobe pneumonia Qualifiers: Pneumonia type: due to unspecified organism Qualified Code(s): J18.1 - Lobar pneumonia, unspecified organism - Departure Disposition: Still a patient Condition: Stable Referrals: Tim Sharp MD [Primary Care Provider] - <Emeka Mary - Last Filed: 12/01/17 11:26> Immunizations: IMMUNIZATION HX Immunizations Up to Date Yes History of Influenza Vaccine Yes Hx Pneumococcal Vaccination Yes Medical History (Last Reviewed 12/01/17 @ 08:56 by Mat Lopez DO) Aortic aneurysm with dissection (Chronic) 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) Onset Date: ~08/31/15 Sleep apnea (Chronic) Anemia (Chronic) Onset Date: ~09/11/12 Diabetes mellitus (Chronic) Asthma (Chronic) Pickwickian syndrome (Chronic) Onset Date: ~09/11/12 Prader-Willi syndrome (Chronic) Onset Date: ~09/11/12 Aortic dissection Back pain CHF (congestive heart failure) Obstructive sleep apnea Pneumonia Recurrent pneumonia Tracheostomy in place Eating disorder Surgical History: Surgical History (Last Reviewed 12/01/17 @ 08:56 by Mat Lopez DO) Femur fracture H/O gastric bypass Onset Date: ~1975 H/O heart surgery Onset Date: ~04/29/17 H/O tracheostomy History of right knee joint replacement Hx of gastric bypass Family History: Family History (Last Reviewed 12/01/17 @ 08:56 by Mat Lopez DO) Other Father Diabetes, depression mother with Anxiety nd Hypertension mother with depression Social History: Preferred Language [place] Citizen Do you have any rastafarian or No cultural preference? Smoking Status Never smoker Abuse History No History of abuse Psych History No pertinent hx Alcohol Use none Drug Use none ED Progress - Vital Signs Vital Signs: Vital Signs 12/01/17 08:38 12/01/17 08:48 12/01/17 08:56 Temperature 36.4 C Pulse Rate 78 71 Respiratory Rate 26 H 26 H Blood Pressure 147/73 H O2 Sat by Pulse Oximetry 88 L 91 L 89 L 12/01/17 11:17 Temperature Pulse Rate 70 Respiratory Rate Blood Pressure 125/48 O2 Sat by Pulse Oximetry - Progress/Reassessment Progress:: Unchanged Progress Note-Subjective: 12/01/17 11:24 Patient with a history of recurrent pneumonia and tracheostomy presenting to the emergency room with a few day history of cough Upper arrival vitals were fine to be stable. Physical examination see providers noted above. Blood work reviewed with significant leukocytosis and lactictemia Also be b naturectic peptide is consistent with 2000+. Patient was given a dose of Lasix 40 mg IV 1. X-ray obtained was consistent with a left lower lobe infiltrate. Given his history of leukocytosis and lactemia and this fever is pneumonia I discussed this patient with Dr. Fonseca, after starting him on vancomycin and Levaquin Patient will be transitioned to the hospital and observed
[2017-12-01 09:47] LABS: Hematocrit 41.7 % (42.0-52.0); Hemoglobin 12.9 gm/dL (13.5-18.0); Mean Cell Volume 89.7 fl (78-100); Mean Corpuscular Hemoglobin 27.7 pg (27-31); Mean Corpuscular Hgb Conc 30.9 g/dl (32-36); Mean Platelet Volume 8.6 fl (8-11.3); Neutrophil # 15.9 K/mm3 (1.3-6.0); Neutrophil % 91.1 % (42-75.0); Platelet Count 211 K/mm3 (150-450); Red Blood Count 4.65 M/mm3 (4.7-6.0); Red Cell Distribution Width 14.6 % (11.5-14.0); White Blood Count 17.5 K/mm3 (4.0-10.5)
[2017-12-01 10:07] LABS: ALT 18 U/L (19-67); AST 18 U/L (0-48); Albumin * 3.6 gm/dl (3.4-5.0); Alkaline Phosphatase * 99 U/L (50-170); BNP * 2777 pg/mL (5-175); BUN/Creatinine Ratio 18.1 (9.0-21.6); Bilirubin, Total 0.4 mg/dL (0.0-1.1); Blood Urea Nitrogen 13 mg/dL (6-23); Ca. Corrected For Albumin 8.9 mg/dL (8.4-10.2); Calcium * 8.9 mg/dL (7.9-10.9); Carbon Dioxide 29.8 mmol/L (24-32.6); Chloride 98 mmol/L (97-106); Glucose * 146 mg/dL (70-110); Potassium 3.8 mmol/L (3.4-4.6); Sodium 135 mmol/L (132-142); Total Protein 7.5 gm/dL (6.2-8.2); Troponin I Less than 0.017 ng/mL (0.00-0.10)
[2017-12-01] MEDS ORDERED: VANCOMYCIN HCL 1 GM in DEXTROSE 5 % IN WATER 250 ML IV ONE ×2 (10:21)
[2017-12-01] MEDS ORDERED: FUROSEMIDE 10 MG/ML VIAL IV ONE (10:24)
[2017-12-01] MEDS ORDERED: LEVOFLOXACIN IV SCH (10:30)
[2017-12-01] MEDS ORDERED: DEXTROSE IV SCH (10:30)
[2017-12-01] MEDS ORDERED: FUROSEMIDE 10 MG/ML VIAL ONE (11:13)
[2017-12-01] MEDS: NORMAL SALINE 500 ML IV PRN (11:15)
--- NOTE | 2017-12-01 17:53 | HP ---
Chief Complaint - Chief Complaint Date of Service: 12/01/17 Time of Service: 17:52 Chief Complaint: Hemoptysis History of Present Illness: Philip Apple, is a 57-year-old white male, patient of Dr. Sharp, with past medical history of breakthrough relief syndrome, obstructive sleep apnea status post tracheostomy 41 years ago, chronic obstructive pulmonary disease, diabetes mellitus type 2, recurrent pneumonias, who was admitted on 12/01/2017 because of cough and hemoptysis. The patient has been having cough for the last few days and woke up this morning with hemoptysis. He then was brought to the emergency room worst chest x-ray showed a left lower lobe pneumonia. His white blood cell count was elevated at 18,000. He was then admitted for further evaluation and treatment. His last admission was 6 weeks ago and this was for pneumonia as well. He is scheduled to go to [facility] on Tuesday for repair of of a thoracic aneurysm as well as probable stenting of his coronary artery. 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) Onset Date: ~08/31/15 Sleep apnea (Chronic) Anemia (Chronic) Onset Date: ~09/11/12 Diabetes mellitus (Chronic) Asthma (Chronic) Pickwickian syndrome (Chronic) Onset Date: ~09/11/12 Prader-Willi syndrome (Chronic) Onset Date: ~09/11/12 Scoliosis alternating vision Aortic dissection Back pain CHF (congestive heart failure) Obstructive sleep apnea Pneumonia Recurrent pneumonia Tracheostomy in place Eating disorder Surgical History: Surgical History (Last Reviewed 12/01/17 @ 12:44 by Alyssa Vásquez RN) Femur fracture H/O gastric bypass Onset Date: ~1975 H/O heart surgery Onset Date: ~04/29/17 H/O tracheostomy History of right knee joint replacement Hx of gastric bypass Family History: Family History (Last Reviewed 12/01/17 @ 12:46 by Alyssa Vásquez RN) Grandfather Lung cancer Uncle Lung cancer Other Father Diabetes, depression mother with Anxiety nd Hypertension mother with depression Social History: Patient Lives/Resources Home Utilized Occupation Retired Preferred Language Uzbek Do you have any jain or Yes: Moravian cultural preference? Smoking Status Never smoker Have you smoked in the past 12 No months Abuse History No History of abuse Psych History No pertinent hx Alcohol Use none Drug Use none Review Of Systems (GEN) - Review of Systems Generalized/Overall Review: Absent: Chills, Fever Respiratory: Present: Cough. Absent: Shortness of Breath, Wheezing Cardiac: Present: Edema. Absent: Chest Pain, Palpitations Abdominal: Absent: Nausea, Vomiting Genitourinary: Absent: Urgency, Frequency Musculoskeletal: Present: Joint Pain, Back Pain Immunizations: IMMUNIZATION HX Immunizations Up to Date Yes History of Influenza Vaccine Yes Hx Pneumococcal Vaccination Yes Allergies/Adverse Reactions: Allergies Allergy/AdvReac Type Severity Reaction Status Date / Time No Known Allergies Allergy Verified 12/01/17 12:46 Home Medications: HOME MEDICATIONS Aspirin 81 mg PO BID 04/26/17 [Last Taken 10/22/17] Cetirizine HCl [Zyrtec] 10 mg PO HS 04/26/17 [Last Taken 10/22/17] Docusate Sodium 100 mg PO BID PRN 04/26/17 [Last Taken 10/22/17] Fluticasone Propionate [Flovent Hfa] 220 mcg IH BID 04/26/17 [Last Taken ] metFORMIN HCL [Glucophage] 850 mg PO BIDWM 04/26/17 [Last Taken 10/22/17] Calcium Carbonate/Vitamin D3 [Calcium 500-Vit D3 200 Tablet] 1 ea PO DAILY 05/17/17 [Last Taken 10/22/17] Metoprolol Tartrate [Lopressor] 100 mg PO BID 05/17/17 [Last Taken 10/22/17] Multivitamin [Multivitamins] 1 ea PO DAILY 05/17/17 [Last Taken 10/22/17] amLODIPine BESYLATE [Norvasc] 10 mg PO DAILY 05/17/17 [Last Taken 10/22/17] Albuterol Sulfate/Ipratropium [Duoneb 2.5-0.5MG/3ML Soln] 3 ml IH Q4HRT #60 nebu 05/20/17 [Last Taken 10/22/17] Potassium Chloride [Klor-Con 10] 10 meq PO DAILY 06/30/17 [Last Taken 10/22/17] Acetaminophen [Tylenol] 650 mg PO Q4H PRN tab 08/30/17 [Last Taken Unknown] polysaccharide iron complex 150 mg iron capsule 150 mg PO DAILY cap 09/01/17 [Last Taken 10/22/17] sennosides 8.6 mg tablet 17.2 mg PO DAILY PRN tab 09/01/17 [Last Taken 10/22/17] sodium chloride 3 % for nebulization 4 ml IH Q6H 09/20/17 [Last Taken 10/22/17] furosemide 20 mg tablet 20 mg PO DAILY #30 tab 10/31/17 [Last Taken Unknown] montelukast 10 mg tablet 10 mg PO HS 30 Days #30 tab 10/31/17 [Last Taken Unknown] ranitidine 150 mg tablet 150 mg PO BID #60 tab 11/30/17 [Last Taken Unknown] Albuterol Sulfate 2.5 mg IH Q4H PRN 12/01/17 [Last Taken Unknown] Exam - Exam Vital Signs: Vital Signs - Last Taken Temp 36.6 C 12/01/17 15:30 Pulse 72 12/01/17 15:30 Resp 18 12/01/17 15:30 BP 110/55 12/01/17 15:30 Pulse Ox 91 L 12/01/17 15:30 Constitutional: Present: Alert, Oriented x3, Cooperative ENT Exam: Present: hearing grossly normal Eye Exam: bilateral eye: normal inspection, PERRL, EOMI Neck: Present: supple Respiratory: Present: decreased breath sounds, No rales, No wheezing Cardiovascular/Chest: Present: regular rate, rhythm, no JVD, no murmur Abdomen: Present: Normal bowel sounds, soft, nontender, nondistended Extremity: Present: no calf tenderness, lower extremity edema Diagnostic Studies: Abnormal Lab Results 12/01/17 12/01/17 12/01/17 Range/Units 09:40 09:40 10:44 WBC 17.5 H (4.0-10.5) K/mm3 RBC 4.65 L (4.7-6.0) M/mm3 Hgb 12.9 L (13.5-18.0) gm/dL Hct 41.7 L (42.0-52.0) % MCHC 30.9 L (32-36) g/dl RDW 14.6 H (11.5-14.0) % Immature Gran % (Auto) 0.50 H (0.001-0.429) % Immature Gran # (Auto) 0.08 H (0.000-0.0310) K/mm3 Neutrophils % 91.1 H (42-75.0) % Lymphocytes % 3.6 L (20-51) % Neutrophils # 15.9 H (1.3-6.0) K/mm3 Lymphocytes # 0.62 L (1.5-3.5) k/mm3 Random Glucose 146 H (70-110) mg/dL Lactic Acid, Venous 2.6 H* (0.4-2.0) mmol/L ALT 18 L (19-67) U/L B-Natriuretic Peptide 2777 H (5-175) pg/mL 12/01/17 Range/Units 13:46 WBC (4.0-10.5) K/mm3 RBC (4.7-6.0) M/mm3 Hgb (13.5-18.0) gm/dL Hct (42.0-52.0) % MCHC (32-36) g/dl RDW (11.5-14.0) % Immature Gran % (Auto) (0.001-0.429) % Immature Gran # (Auto) (0.000-0.0310) K/mm3 Neutrophils % (42-75.0) % Lymphocytes % (20-51) % Neutrophils # (1.3-6.0) K/mm3 Lymphocytes # (1.5-3.5) k/mm3 Random Glucose (70-110) mg/dL Lactic Acid, Venous 3.4 H* (0.4-2.0) mmol/L ALT (19-67) U/L B-Natriuretic Peptide (5-175) pg/mL [facility] 12/01/17 13:18 Sputum Culture - Preliminary Suctioned Sputum Laboratory Results WBC 17.5 K/mm3 (4.0-10.5) H 12/01/17 09:40 RBC 4.65 M/mm3 (4.7-6.0) L 12/01/17 09:40 Hgb 12.9 gm/dL (13.5-18.0) L 12/01/17 09:40 Hct 41.7 % (42.0-52.0) L 12/01/17 09:40 MCV 89.7 fl (78-100) 12/01/17 09:40 MCH 27.7 pg (27-31) 12/01/17 09:40 MCHC 30.9 g/dl (32-36) L 12/01/17 09:40 RDW 14.6 % (11.5-14.0) H 12/01/17 09:40 Plt Count 211 K/mm3 (150-450) 12/01/17 09:40 MPV 8.6 fl (8-11.3) 12/01/17 09:40 Immature Gran % (Auto) 0.50 % (0.001-0.429) H 12/01/17 09:40 Immature Gran # (Auto) 0.08 K/mm3 (0.000-0.0310) H 12/01/17 09:40 Neutrophils % 91.1 % (42-75.0) H 12/01/17 09:40 Lymphocytes % 3.6 % (20-51) L 12/01/17 09:40 Monocytes % 4.4 % (0.0-9) 12/01/17 09:40 Eosinophils % 0.1 % (0.0-3.0) 12/01/17 09:40 Basophils % 0.3 % (0.0-1.0) 12/01/17 09:40 Nucleated RBC % 0.0 k/mm3 (0-1) 12/01/17 09:40 Neutrophils # 15.9 K/mm3 (1.3-6.0) H 12/01/17 09:40 Lymphocytes # 0.62 k/mm3 (1.5-3.5) L 12/01/17 09:40 Monocytes # 0.8 k/mm3 (0.0-1.0) 12/01/17 09:40 Eosinophils # 0.0 k/mm3 (0.0-0.7) 12/01/17 09:40 Absolute Basophils 0.1 k/mm3 (0.0-0.1) 12/01/17 09:40 Sodium 135 mmol/L (132-142) 12/01/17 09:40 Plasma Sodium 136 mmol/L (130-142) 12/01/17 09:40 Potassium 3.8 mmol/L (3.4-4.6) 12/01/17 09:40 Chloride 98 mmol/L (97-106) 12/01/17 09:40 Carbon Dioxide 29.8 mmol/L (24-32.6) 12/01/17 09:40 Anion Gap 11.0 mmol/L (6.8-13.8) 12/01/17 09:40 BUN 13 mg/dL (6-23) 12/01/17 09:40 Creatinine 0.72 mg/dL (0.4-1.4) 12/01/17 09:40 Est GFR (Non-Af Amer) 119 mL/min (60-130) 12/01/17 09:40 BUN/Creatinine Ratio 18.1 (9.0-21.6) 12/01/17 09:40 Random Glucose 146 mg/dL (70-110) H 12/01/17 09:40 Lactic Acid, Venous 3.4 mmol/L (0.4-2.0) H* 12/01/17 13:46 Calcium 8.9 mg/dL (7.9-10.9) 12/01/17 09:40 Calcium Adj for Albumin 8.9 mg/dL (8.4-10.2) 12/01/17 09:40 Total Bilirubin 0.4 mg/dL (0.0-1.1) 12/01/17 09:40 AST 18 U/L (0-48) 12/01/17 09:40 ALT 18 U/L (19-67) L 12/01/17 09:40 Alkaline Phosphatase 99 U/L (50-170) 12/01/17 09:40 Troponin I Less than 0.017 ng/mL (0.00-0.10) 12/01/17 09:40 B-Natriuretic Peptide 2777 pg/mL (5-175) H 12/01/17 09:40 Total Protein 7.5 gm/dL (6.2-8.2) 12/01/17 09:40 Albumin 3.6 gm/dl (3.4-5.0) 12/01/17 09:40 Assessment/Plan - Assessment/Plan (1) Left lower lobe pneumonia Assessment: likely aspiration pneumonia. Will d/c levaquin and cover her with IV Zosyn and Vancomycin. Pharmacy to follow and adjust dosages per cr clearnace and trough level. Problem: Acute Qualifiers: Pneumonia type: due to unspecified organism Qualified Code(s): J18.1 - Lobar pneumonia, unspecified organism (2) Hemoptysis Assessment: likely due to Pneumonia Problem: Acute (3) Diabetes Problem: Chronic Qualifiers: Diabetes mellitus type: type 2 Diabetes mellitus care home insulin use: without termite helper use Diabetes mellitus complication status: without comp lication Qualified Code(s): E11.9 - Type 2 diabetes mellitus without complications (4) Tracheostomy dependence Problem: Chronic (5) Sleep apnea Problem: Chronic (6) Prader-Willi syndrome Problem: Chronic (7) Lactic acidosis Assessment: de to hypoxemia r/o sepsis Problem: Acute
[2017-12-01] MEDS ORDERED: ACETAMINOPHEN 325 MG TABLET PO PRN (18:07)
[2017-12-01] MEDS ORDERED: SENNOSIDES 8.6 MG TABLET PO PRN (18:07)
[2017-12-01] MEDS ORDERED: SODIUM CHLORIDE FOR INHALATION 4 ML VIAL.NEB IH SCH (18:15)
[2017-12-01] MEDS: ALBUTEROL SULFATE/IPRATROPIUM 3 ML NEBU IH SCH ×2 (18:49→22:04)
[2017-12-01] MEDS ORDERED: ALBUTEROL SULFATE 2.5 MG/0.5 ML VIAL.NEB IH PRN (20:00)
[2017-12-01] MEDS ORDERED: DOCUSATE SODIUM 100 MG CAPSULE PO PRN (21:00)
[2017-12-01] MEDS ORDERED: ASPIRIN 81 MG TAB.CHEW PO SCH (21:00)
[2017-12-01] MEDS ORDERED: METOPROLOL TARTRATE 50 MG TABLET PO SCH (21:00)
[2017-12-01] MEDS: BUDESONIDE 0.5 MG/2 ML VIAL.NEB IH SCH (21:35)
[2017-12-01] MEDS: MONTELUKAST SODIUM 10 MG TABLET PO SCH (21:41)
[2017-12-01] MEDS: LORATADINE 10 MG TABLET PO SCH (21:41)
[2017-12-01] MEDS: FAMOTIDINE 20 MG TABLET PO SCH (21:41)
[2017-12-01] MEDS: SACCHAROMYCES BOULARDII 250 MG CAPSULE PO SCH (21:41)
[2017-12-01] MEDS: PIPERACILLIN SODIUM/TAZOBACTAM 3.375 GM in DEXTROSE 5 % IN WATER 100 ML IV SCH ×2 (21:48)
[2017-12-02] MEDS: VANCOMYCIN HCL 1.25 GM in DEXTROSE 5 % IN WATER 250 ML IV SCH ×4 (01:36→12:55)
[2017-12-02] MEDS: SODIUM CHLORIDE FOR INHALATION 4 ML VIAL.NEB IH SCH ×4 (02:00→18:15)
[2017-12-02] MEDS: ALBUTEROL SULFATE/IPRATROPIUM 3 ML NEBU IH SCH ×6 (02:02→23:23)
[2017-12-02] MEDS: PIPERACILLIN SODIUM/TAZOBACTAM 3.375 GM in DEXTROSE 5 % IN WATER 100 ML IV SCH ×6 (05:17→21:31)
[2017-12-02] MEDS: NORMAL SALINE 500 ML IV PRN ×3 (05:22→23:34)
[2017-12-02] MEDS: BUDESONIDE 0.5 MG/2 ML VIAL.NEB IH SCH ×2 (06:00→18:15)
[2017-12-02] MEDS: IRON POLYSACCHARIDE COMPLEX 1 CAP CAPSULE PO SCH (08:09)
[2017-12-02] MEDS: POTASSIUM CHLORIDE 10 MEQ TABLET.SA PO SCH (08:09)
[2017-12-02] MEDS: MULTIVITAMINS 1 CAP CAPSULE PO SCH (08:09)
[2017-12-02] MEDS: FAMOTIDINE 20 MG TABLET PO SCH ×2 (08:09→21:30)
[2017-12-02] MEDS: amLODIPine BESYLATE 10 MG TABLET PO SCH (08:09)
[2017-12-02] MEDS: SACCHAROMYCES BOULARDII 250 MG CAPSULE PO SCH ×2 (08:09→21:30)
[2017-12-02] MEDS: FUROSEMIDE 20 MG TABLET PO SCH (08:10)
[2017-12-02] MEDS: METOPROLOL TARTRATE 100 MG TABLET PO SCH ×2 (08:10→21:30)
--- NOTE | 2017-12-02 09:21 | PN ---
Subjective - Date and Time Seen Date: 12/02/17 Time: 09:18 Subjective Narrative: Feels better . Still with hemoptysis. Objective - Review of Systems Generalized/Overall Review: Reports: Weakness. Denies: Chills, Fever Respiratory: Reports: Cough, Shortness of Breath. Denies: Wheezing Cardiac: Reports: Edema. Denies: Chest Pain, Palpitations Abdominal: Denies: Nausea, Vomiting Genitourinary Symptoms: Denies: Urgency, Frequency Musculoskeletal Complaints: Denies: Joint Pain - Vitals Vitals: Last Vital Signs Temp 37.2 C 12/02/17 06:39 Pulse 60 12/02/17 08:10 Resp 20 12/02/17 06:39 BP 144/61 H 12/02/17 08:10 Pulse Ox 94 12/02/17 06:39 - Abnormal Lab Findings Abnormal Lab Findings: Abnormal Lab Results 12/01/17 12/01/17 12/01/17 Range/Units 09:40 09:40 10:44 WBC 17.5 H (4.0-10.5) K/mm3 RBC 4.65 L (4.7-6.0) M/mm3 Hgb 12.9 L (13.5-18.0) gm/dL Hct 41.7 L (42.0-52.0) % MCHC 30.9 L (32-36) g/dl RDW 14.6 H (11.5-14.0) % Immature Gran % (Auto) 0.50 H (0.001-0.429) % Immature Gran # (Auto) 0.08 H (0.000-0.0310) K/mm3 Neutrophils % 91.1 H (42-75.0) % Lymphocytes % 3.6 L (20-51) % Neutrophils # 15.9 H (1.3-6.0) K/mm3 Lymphocytes # 0.62 L (1.5-3.5) k/mm3 Random Glucose 146 H (70-110) mg/dL Lactic Acid, Venous 2.6 H* (0.4-2.0) mmol/L ALT 18 L (19-67) U/L B-Natriuretic Peptide 2777 H (5-175) pg/mL 12/01/17 Range/Units 13:46 WBC (4.0-10.5) K/mm3 RBC (4.7-6.0) M/mm3 Hgb (13.5-18.0) gm/dL Hct (42.0-52.0) % MCHC (32-36) g/dl RDW (11.5-14.0) % Immature Gran % (Auto) (0.001-0.429) % Immature Gran # (Auto) (0.000-0.0310) K/mm3 Neutrophils % (42-75.0) % Lymphocytes % (20-51) % Neutrophils # (1.3-6.0) K/mm3 Lymphocytes # (1.5-3.5) k/mm3 Random Glucose (70-110) mg/dL Lactic Acid, Venous 3.4 H* (0.4-2.0) mmol/L ALT (19-67) U/L B-Natriuretic Peptide (5-175) pg/mL - Exam Constitutional: Present: Alert, Oriented x3, Cooperative ENT Exam: Present: hearing grossly normal Neck: Present: stiff neck Respiratory: Present: decreased breath sounds. Absent: No rales, No wheezing Cardiovascular/Chest: Present: regular rate, rhythm, no JVD, no murmur Abdomen: Present: Normal bowel sounds, soft, nontender, nondistended Extremity: Present: no calf tenderness, lower extremity edema Assessment/Plan - Problems/Diagnosis (1) Left lower lobe pneumonia Problem: Acute Qualifiers: Pneumonia type: due to unspecified organism Qualified Code(s): J18.1 - Lobar pneumonia, unspecified organism Narrative: continue with present IV antibiotics (2) Hemoptysis Problem: Acute Narrative: antiplatelts and anticoagulants on hold (3) Diabetes Problem: Chronic Qualifiers: Diabetes mellitus type: type 2 Diabetes mellitus intermediate accountant insulin use: without intermediate accountant use Diabetes mellitus complication status: without complication Qualified Code(s): E11.9 - Type 2 diabetes mellitus without complications (4) Tracheostomy dependence Problem: Chronic (5) Sleep apnea Problem: Chronic (6) Prader-Willi syndrome Problem: Chronic (7) Lactic acidosis Problem: Acute Narrative: will repeat
[2017-12-02 09:57] LABS: Hematocrit 38.2 % (42.0-52.0); Hemoglobin 11.8 gm/dL (13.5-18.0); Mean Cell Volume 89.3 fl (78-100); Mean Corpuscular Hemoglobin 27.6 pg (27-31); Mean Corpuscular Hgb Conc 30.9 g/dl (32-36); Mean Platelet Volume 9.3 fl (8-11.3); Neutrophil # 7.3 K/mm3 (1.3-6.0); Neutrophil % 82.4 % (42-75.0); Platelet Count 160 K/mm3 (150-450); Red Blood Count 4.28 M/mm3 (4.7-6.0); Red Cell Distribution Width 14.6 % (11.5-14.0); White Blood Count 8.8 K/mm3 (4.0-10.5)
[2017-12-02 10:04] LABS: BUN/Creatinine Ratio 14.3 (9.0-21.6); Carbon Dioxide 32.3 mmol/L (24-32.6); Estimated Creat Clear 90.4; Potassium 3.5 mmol/L (3.4-4.6)
[2017-12-02 10:05] LABS: Anion Gap 9.2 mmol/L (6.8-13.8); Calcium * 8.7 mg/dL (7.9-10.9)
[2017-12-02] MEDS: MONTELUKAST SODIUM 10 MG TABLET PO SCH (21:30)
[2017-12-02] MEDS: LORATADINE 10 MG TABLET PO SCH (21:31)
[2017-12-03] MEDS: SODIUM CHLORIDE FOR INHALATION 4 ML VIAL.NEB IH SCH ×4 (00:32→19:10)
[2017-12-03] MEDS: VANCOMYCIN HCL 1.25 GM in DEXTROSE 5 % IN WATER 250 ML IV SCH ×4 (01:36→14:09)
[2017-12-03] MEDS: ALBUTEROL SULFATE/IPRATROPIUM 3 ML NEBU IH SCH ×6 (02:23→22:24)
[2017-12-03] MEDS: PIPERACILLIN SODIUM/TAZOBACTAM 3.375 GM in DEXTROSE 5 % IN WATER 100 ML IV SCH ×6 (04:04→22:42)
[2017-12-03] MEDS: BUDESONIDE 0.5 MG/2 ML VIAL.NEB IH SCH ×2 (06:02→18:16)
[2017-12-03] MEDS: FUROSEMIDE 20 MG TABLET PO SCH (08:43)
[2017-12-03] MEDS: FAMOTIDINE 20 MG TABLET PO SCH ×2 (08:43→22:43)
[2017-12-03] MEDS: MULTIVITAMINS 1 CAP CAPSULE PO SCH (08:43)
[2017-12-03] MEDS: SACCHAROMYCES BOULARDII 250 MG CAPSULE PO SCH ×2 (08:43→22:42)
[2017-12-03] MEDS: amLODIPine BESYLATE 10 MG TABLET PO SCH (08:43)
[2017-12-03] MEDS: IRON POLYSACCHARIDE COMPLEX 1 CAP CAPSULE PO SCH (08:44)
[2017-12-03] MEDS: METOPROLOL TARTRATE 100 MG TABLET PO SCH ×2 (08:44→22:42)
[2017-12-03] MEDS: POTASSIUM CHLORIDE 10 MEQ TABLET.SA PO SCH (08:44)
--- NOTE | 2017-12-03 09:28 | PN ---
Subjective - Date and Time Seen Date: 12/03/17 - n Time: 09:24 Subjective Narrative: He says he is feeling good. His WBC is back to normal. Objective - Review of Systems Generalized/Overall Review: Denies: Chills, Fever Respiratory: Reports: Cough, Shortness of Breath. Denies: Wheezing Cardiac: Reports: Edema. Denies: Chest Pain, Palpitations Abdominal: Denies: Nausea, Vomiting Genitourinary Symptoms: Denies: Urgency, Frequency Musculoskeletal Complaints: Reports: Joint Pain - Vitals Vitals: Last Vital Signs Temp 36.7 C 12/03/17 06:44 Pulse 72 12/03/17 08:44 Resp 20 12/03/17 06:44 BP 137/69 12/03/17 08:44 Pulse Ox 94 12/03/17 06:44 - Abnormal Lab Findings Abnormal Lab Findings: Abnormal Lab Results 12/02/17 12/02/17 Range/Units 09:33 09:33 RBC 4.28 L (4.7-6.0) M/mm3 Hgb 11.8 L (13.5-18.0) gm/dL Hct 38.2 L (42.0-52.0) % MCHC 30.9 L (32-36) g/dl RDW 14.6 H (11.5-14.0) % Neutrophils % 82.4 H (42-75.0) % Lymphocytes % 10.7 L (20-51) % Neutrophils # 7.3 H (1.3-6.0) K/mm3 Lymphocytes # 0.94 L (1.5-3.5) k/mm3 Est GFR (Non-Af Amer) 139 H (60-130) mL/min Random Glucose 148 H (70-110) mg/dL - Exam Constitutional: Present: Alert, Oriented x3, Cooperative ENT Exam: Present: hearing grossly normal Neck: Present: supple Respiratory: Present: decreased breath sounds, No rales, No wheezing Cardiovascular/Chest: Present: regular rate, rhythm, no JVD, no murmur Abdomen: Present: Normal bowel sounds, soft, nontender, nondistended Extremity: Present: no calf tenderness, pedal edema Assessment/Plan Plan Narrative: Continue with present management - Problems/Diagnosis (1) Left lower lobe pneumonia Problem: Acute Qualifiers: Pneumonia type: aspiration pneumonia Qualified Code(s): J18.1 - Lobar pneumonia, unspecified organism Narrative: Day # 3 of IV antibiotics. Afebrile. Tmax 37. WBC back to normal. Will rechec CXR in am. (2) Hemoptysis Problem: Acute (3) Diabetes Problem: Chronic Qualifiers: Diabetes mellitus type: type 2 Diabetes mellitus custodial insulin use: without middle or intermediate school principal use Diabetes mellitus complication status: without complication Qualified Code(s): E11.9 - Type 2 diabetes mellitus without co mplications (4) Tracheostomy dependence Problem: Chronic (5) Sleep apnea Problem: Chronic (6) Prader-Willi syndrome Problem: Chronic (7) Lactic acidosis Problem: Acute
[2017-12-03] MEDS ORDERED: VANCOMYCIN HCL LEVEL XX ONE (12:30)
[2017-12-03] MEDS: LORATADINE 10 MG TABLET PO SCH (22:42)
[2017-12-03] MEDS: MONTELUKAST SODIUM 10 MG TABLET PO SCH (22:44)
[2017-12-04] MEDS: SODIUM CHLORIDE FOR INHALATION 4 ML VIAL.NEB IH SCH ×4 (00:13→18:13)
[2017-12-04] MEDS: ALBUTEROL SULFATE/IPRATROPIUM 3 ML NEBU IH SCH ×6 (02:26→22:07)
[2017-12-04] MEDS: VANCOMYCIN HCL 1.25 GM in DEXTROSE 5 % IN WATER 250 ML IV SCH ×4 (03:01→13:27)
[2017-12-04 05:32] LABS: Hematocrit 37.9 % (42.0-52.0); Hemoglobin 11.6 gm/dL (13.5-18.0); Mean Corpuscular Hemoglobin 27.6 pg (27-31); Mean Corpuscular Hgb Conc 30.6 g/dl (32-36); Mean Platelet Volume 8.8 fl (8-11.3); Neutrophil # 4.7 K/mm3 (1.3-6.0); Neutrophil % 67.2 % (42-75.0); Platelet Count 179 K/mm3 (150-450); Red Blood Count 4.21 M/mm3 (4.7-6.0); Red Cell Distribution Width 14.5 % (11.5-14.0); White Blood Count 7.1 K/mm3 (4.0-10.5)
[2017-12-04 05:41] LABS: Anion Gap 5.3 mmol/L (6.8-13.8); BUN/Creatinine Ratio 14.8 (9.0-21.6); Calcium * 8.3 mg/dL (7.9-10.9); Carbon Dioxide 33.6 mmol/L (24-32.6); Estimated Creat Clear 105.5; Potassium 3.9 mmol/L (3.4-4.6)
[2017-12-04] MEDS: PIPERACILLIN SODIUM/TAZOBACTAM 3.375 GM in DEXTROSE 5 % IN WATER 100 ML IV SCH ×6 (05:42→21:51)
[2017-12-04] MEDS: BUDESONIDE 0.5 MG/2 ML VIAL.NEB IH SCH ×2 (06:03→18:04)
--- NOTE | 2017-12-04 09:33 | PN ---
Subjective - Date and Time Seen Date: 12/04/17 Time: 09:29 Subjective Narrative: Afebrile. Still with hemoptysis but diminished Objective - Review of Systems Generalized/Overall Review: Denies: Chills, Fever Respiratory: Reports: Cough. Denies: Shortness of Breath Cardiac: Reports: Edema. Denies: Chest Pain, Palpitations Abdominal: Denies: Nausea, Vomiting Genitourinary Symptoms: Denies: Urgency, Frequency - Vitals Vitals: Last Vital Signs Temp 36.7 C 12/04/17 06:43 Pulse 58 L 12/04/17 06:43 Resp 20 12/04/17 06:43 BP 155/73 H 12/04/17 06:43 Pulse Ox 95 12/04/17 06:43 - Abnormal Lab Findings Abnormal Lab Findings: Abnormal Lab Results 12/04/17 12/04/17 Range/Units 05:30 05:30 RBC 4.21 L (4.7-6.0) M/mm3 Hgb 11.6 L (13.5-18.0) gm/dL Hct 37.9 L (42.0-52.0) % MCHC 30.6 L (32-36) g/dl RDW 14.5 H (11.5-14.0) % Immature Gran % (Auto) 0.60 H (0.001-0.429) % Immature Gran # (Auto) 0.04 H (0.000-0.0310) K/mm3 Lymphocytes % 19.5 L (20-51) % Eosinophils % 4.8 H (0.0-3.0) % Lymphocytes # 1.38 L (1.5-3.5) k/mm3 Carbon Dioxide 33.6 H (24-32.6) mmol/L Anion Gap 5.3 L (6.8-13.8) mmol/L Est GFR (Non-Af Amer) 166 H (60-130) mL/min Random Glucose 130 H (70-110) mg/dL - Exam Constitutional: Present: Alert, Oriented x3, Cooperative ENT Exam: Present: hearing grossly normal Neck: Present: supple Respiratory: Present: decreased breath sounds, No rales, No wheezing Cardiovascular/Chest: Present: regular rate, rhythm, no JVD, no murmur Abdomen: Present: Normal bowel sounds, soft, nontender, obese Extremity: Present: no calf tenderness, pedal edema Assessment/Plan - Problems/Diagnosis (1) Left lower lobe pneumonia Problem: Acute Qualifiers: Pneumonia type: aspiration pneumonia Narrative: interval improvement of LML infiltrate , questionable right infrahilar infilatr ate- WBC is still jd. continue with IV antibiotics. possible discharge tomorrow with oral antibiotics. (2) Hemoptysis Problem: Acute Narrative: improved (3) Diabetes Problem: Chronic Qualifiers: Diabetes mellitus type: type 2 Diabetes mellitus group home insulin use: without parts counterman use Diabetes mellitus complication status: without complication Qualified Code(s): E11.9 - Type 2 diabetes mellitus without complications (4) Tracheostomy dependence Problem: Chronic (5) Sleep apnea Problem: Chronic (6) Prader-Willi syndrome Problem: Chronic (7) Lactic acidosis Problem: Resolved
[2017-12-04] MEDS: MULTIVITAMINS 1 CAP CAPSULE PO SCH (09:52)
[2017-12-04] MEDS: METOPROLOL TARTRATE 100 MG TABLET PO SCH ×2 (09:52→21:50)
[2017-12-04] MEDS: FUROSEMIDE 20 MG TABLET PO SCH (09:52)
[2017-12-04] MEDS: POTASSIUM CHLORIDE 10 MEQ TABLET.SA PO SCH (09:52)
[2017-12-04] MEDS: SACCHAROMYCES BOULARDII 250 MG CAPSULE PO SCH ×2 (09:52→21:50)
[2017-12-04] MEDS: amLODIPine BESYLATE 10 MG TABLET PO SCH (09:52)
[2017-12-04] MEDS: FAMOTIDINE 20 MG TABLET PO SCH ×2 (09:52→21:50)
[2017-12-04] MEDS: IRON POLYSACCHARIDE COMPLEX 1 CAP CAPSULE PO SCH (09:53)
[2017-12-04] MEDS: MONTELUKAST SODIUM 10 MG TABLET PO SCH (21:51)
[2017-12-04] MEDS: LORATADINE 10 MG TABLET PO SCH (21:51)
[2017-12-05] MEDS: VANCOMYCIN HCL 1.25 GM in DEXTROSE 5 % IN WATER 250 ML IV SCH ×2 (01:56)
[2017-12-05] MEDS: SODIUM CHLORIDE FOR INHALATION 4 ML VIAL.NEB IH SCH ×2 (01:58→06:00)
[2017-12-05] MEDS: ALBUTEROL SULFATE/IPRATROPIUM 3 ML NEBU IH SCH ×3 (02:21→10:19)
[2017-12-05] MEDS: PIPERACILLIN SODIUM/TAZOBACTAM 3.375 GM in DEXTROSE 5 % IN WATER 100 ML IV SCH ×2 (05:18)
[2017-12-05] MEDS: BUDESONIDE 0.5 MG/2 ML VIAL.NEB IH SCH (05:59)
[2017-12-05] MEDS: SACCHAROMYCES BOULARDII 250 MG CAPSULE PO SCH (08:19)
[2017-12-05] MEDS: POTASSIUM CHLORIDE 10 MEQ TABLET.SA PO SCH (08:19)
[2017-12-05] MEDS: MULTIVITAMINS 1 CAP CAPSULE PO SCH (08:20)
[2017-12-05] MEDS: IRON POLYSACCHARIDE COMPLEX 1 CAP CAPSULE PO SCH (08:20)
[2017-12-05] MEDS: FAMOTIDINE 20 MG TABLET PO SCH (08:20)
[2017-12-05] MEDS: FUROSEMIDE 20 MG TABLET PO SCH (08:20)
[2017-12-05] MEDS: amLODIPine BESYLATE 10 MG TABLET PO SCH (08:20)
[2017-12-05] MEDS: METOPROLOL TARTRATE 100 MG TABLET PO SCH (08:20)
--- NOTE | 2017-12-05 09:32 | DS ---
(1) Left lower lobe pneumonia Problem: Acute Qualifiers: Pneumonia type: aspiration pneumonia (2) Hemoptysis Problem: Resolved (3) Diabetes Problem: Chronic Qualifiers: Diabetes mellitus type: type 2 Diabetes mellitus adjunct faculty for medical terminology insulin use: without senior living use Diabetes mellitus complication status: without complication Qualified Code(s): E11.9 - Type 2 diabetes mellitus without complications (4) Tracheostomy dependence Problem: Chronic (5) Sleep apnea Problem: Chronic (6) Prader-Willi syndrome Problem: Chronic (7) Lactic acidosis Problem: Resolved Description of Stay: Philip Apple, is a 57-year-old white male, patient of Dr. Sharp, with past medical history of breakthrough relief syndrome, obstructive sleep apnea status post tracheostomy 41 years ago, chronic obstructive pulmonary disease, diabetes mellitus type 2, recurrent pneumonias, who was admitted on 12/01/2017 because of cough and hemoptysis. The patient has been having cough for the last few days and woke up this morning with hemoptysis. He then was brought to the emergency room worst chest x-ray showed a left lower lobe pneumonia. His white blood cell count was elevated at 18,000. He was then admitted for further evaluation and treatment. His last admission was 6 weeks ago and this was for pneumonia as well. He is scheduled to go to [facility] on Tuesday for repair of of a thoracic aneurysm as well as probable stenting of his coronary artery. He was started on IV Zosyn and Vancomycin for recurrent pneumonia likely aspiration pn eumonia. His WBC normalized and his hemoptysis resolved. He had a total of 5 days of his IV antibiotics. Will discharge him on oral antibiotics. Procedures Performed: none Results and Findings: Pending Mircobiology Results 12/01/17 09:30 Blood Blood Culture - Preliminary NO GROWTH AFTER 48 HOURS 12/01/17 10:44 Blood Blood Culture - Preliminary NO GROWTH AFTER 48 HOURS Lab Pending Results 12/01/17 09:40: WBC 17.5 H, RBC 4.65 L, Hgb 12.9 L, Hct 41.7 L, MCV 89.7, MCH 27.7, MCHC 30.9 L, RDW 14.6 H, Plt Count 211, MPV 8.6, Immature Gran % (Auto) 0.50 H, Immature Gran # (Auto) 0.08 H, Neutrophils % 91.1 H, Lymphocytes % 3.6 L, Monocytes % 4.4, Eosinophils % 0.1, Basophils % 0.3, Nucleated RBC % 0.0, Neutrophils # 15.9 H, Lymphocytes # 0.62 L, Monocytes # 0.8, Eosinophils # 0.0, Absolute Basophils 0.1 12/01/17 09:40: Sodium 135, Plasma Sodium 136, Potassium 3.8, Chloride 98, Carbon Dioxide 29.8, Anion Gap 11.0, BUN 13, Creatinine 0.72, Est GFR (Non-Af Amer) 119, BUN/Creatinine Ratio 18.1, Random Glucose 146 H, Calcium 8.9, Calcium Adj for Albumin 8.9, Total Bilirubin 0.4, AST 18, ALT 18 L, Alkaline Phosphatase 99, Troponin I Less than 0.017, B-Natriuretic Peptide 2777 H, Total Protein 7.5, Albumin 3.6 12/01/17 10:44: Lactic Acid, Venous 2.6 H* 12/01/17 13:46: Lactic Acid, Venous 3.4 H* 12/02/17 09:33: WBC 8.8 D, RBC 4.28 L, Hgb 11.8 L, Hct 38.2 L, MCV 89.3, MCH 27.6, MCHC 30.9 L, RDW 14.6 H, Plt Count 160, MPV 9.3, Immature Gran % (Auto) 0.20, Immature Gran # (Auto) 0.02, Neutrophils % 82.4 H, Lymphocytes % 10.7 L, Monocytes % 5.4, Eosinophils % 1.1, Basophils % 0.2, Nucleated RBC % 0.0, Neutrophils # 7.3 H, Lymphocytes # 0.94 L, Monocytes # 0.5, Eosinophils # 0.1, Absolute Basophils 0.0 12/02/17 09:33: Sodium 137, Plasma Sodium 138, Potassium 3.5, Chloride 99, Carbon Dioxide 32.3, Anion Gap 9.2, BUN 9, Creatinine 0.63, Est GFR (Non-Af Amer) 139 H, BUN/Creatinine Ratio 14.3, Random Glucose 148 H, Calcium 8.7 12/02/17 09:33: Lactic Acid, Venous 1.5 12/03/17 12:44: Vancomycin Trough 15.1 12/04/17 05:30: WBC 7.1, RBC 4.21 L, Hgb 11.6 L, Hct 37.9 L, MCV 90.0, MCH 27.6, MCHC 30.6 L, RDW 14.5 H, Plt Count 179, MPV 8.8, Immature Gran % (Auto) 0.60 H, Immature Gran # (Auto) 0.04 H, Neutrophils % 67.2, Lymphocytes % 19.5 L, Monocytes % 7.2, Eosinophils % 4.8 H, Basophils % 0.7, Nucleated RBC % 0.0, Neutrophils # 4.7, Lymphocytes # 1.38 L, Monocytes # 0.5, Eosinophils # 0.3, Absolute Basophils 0.1 12/04/17 05:30: Sodium 134, Plasma Sodium 134, Potassium 3.9, Chloride 99, Carbon Dioxide 33.6 H, Anion Gap 5.3 L, BUN 8, Creatinine 0.54, Est GFR (Non-Af Amer) 166 H, BUN/Creatinine Ratio 14.8, Random Glucose 130 H, Calcium 8.3 Discharge Location: Home Disposition: Home self-care Condition: Stable Discharge Activity: Activity as tolerated Discharge Diet: Consistent carbs Referrals: Tim Sharp MD [Primary Care Provider] - Additional Patient Instructions (free text): -Please make TCM appointment unless [facility] discharge. Thank you! Louann @ ext [phone] or Ángela @ ext [phone]. Follow up with PCP in 1 week. Prescriptions (Any new or edited meds): Amoxicillin/Potassium Clav [Augmentin 875-125 Tablet] 1 each PO BID #10 tablet Levofloxacin [Levaquin] 750 mg PO DAILY #5 tablet Saccharomyces Boulardii [Florastor] 250 mg PO BID #14 capsule Complete Home Medications List: Complete Home Medication List: Cetirizine HCl [Zyrtec] 10 mg PO HS 04/26/17 Docusate Sodium 100 mg PO BID PRN 04/26/17 Fluticasone Propionate [Flovent Hfa] 220 mcg IH BID 04/26/17 metFORMIN HCL [Glucophage] 850 mg PO BIDWM 04/26/17 Calcium Carbonate/Vitamin D3 [Calcium 500-Vit D3 200 Tablet] 1 ea PO DAILY 05/17/17 Metoprolol Tartrate [Lopressor] 100 mg PO BID 05/17/17 Multivitamin [Multivitamins] 1 ea PO DAILY 05/17/17 amLODIPine BESYLATE [Norvasc] 10 mg PO DAILY 05/17/17 Albuterol Sulfate/Ipratropium [Duoneb 2.5-0.5MG/3ML Soln] 3 ml IH Q4HRT #60 nebu 05/20/17 Potassium Chloride [Klor-Con 10] 10 meq PO DAILY 06/30/17 Acetaminophen [Tylenol] 650 mg PO Q4H PRN tab 08/30/17 polysaccharide iron complex 150 mg iron capsule 150 mg PO DAILY cap 09/01/17 sennosides 8.6 mg tablet 17.2 mg PO DAILY PRN tab 09/01/17 sodium chloride 3 % for nebulization 4 ml IH Q6H 09/20/17 furosemide 20 mg tablet 20 mg PO DAILY #30 tab 10/31/17 montelukast 10 mg tablet 10 mg PO HS 30 Days #30 tab 10/31/17 ranitidine 150 mg tablet 150 mg PO BID #60 tab 11/30/17 Albuterol Sulfate 2.5 mg IH Q4H PRN 12/01/17 Amoxicillin/Potassium Clav [Augmentin 875-125 Tablet] 1 each PO BID #10 tablet 12/05/17 Levofloxacin [Levaquin] 750 mg PO DAILY #5 tablet 12/05/17 Saccharomyces Boulardii [Florastor] 250 mg PO BID #14 capsule 12/05/17
[2017-12-05 10:52] VITALS: BP 128/62
== END 2017-12-05 13:19 | disposition home or self-care (01) | DRG 178 ==
LOC: MS 08:33 → ER 08:33 → OBSVTOIN 11:27 → MS 11:45
PROVIDERS: ADMIT Internal Medicine; ATTEND Family Medicine
CPT/HCPCS: 36415; 71020; 71046; 80048; 80053; 80202; 83519; 83605; 83880; 84484; 85025; 87040; 87070; 87077; 87186; 93005; 94640; 94664; 94760; 96361; 96365; 96375; 99284

== ENCOUNTER 2018-02-25 03:36 | Inpatient (IN) | payer MEDICAID, MEDICARE ==
[2018-02-25] MEDS ORDERED: ALBUTEROL SULFATE/IPRATROPIUM 3 ML NEBU IH ONE ×3 (03:41→08:22)
--- NOTE | 2018-02-25 03:47 | ERNOTE ---
Dyspnea - Date Date of Service: 02/25/18 - General Presenting Symptoms: shortness of breath Time Seen by Provider: 02/25/18 03:45 Source: patient, family, EMS Exam Limitations: clinical condition - Immun/Allergies/Home Medications Immunizations: IMMUNIZATION HX Immunizations Up to Date Yes History of Influenza Vaccine Yes Hx Pneumococcal Vaccination Yes Allergies/Adverse Reactions: Allergies No Known Allergies Allergy (Verified 01/30/18 15:13) Home Medications: HOME MEDICATIONS Docusate Sodium 100 mg PO BID PRN 04/26/17 [Last Taken 10/22/17] Fluticasone Propionate [Flovent Hfa] 220 mcg IH BID 04/26/17 [Last Taken 10/22/17] metFORMIN HCL [Glucophage] 850 mg PO BIDWM 04/26/17 [Last Taken 10/22/17] Calcium Carbonate/Vitamin D3 [Calcium 500-Vit D3 200 Tablet] 1 ea PO DAILY 0 05/17/17 [Last Taken 10/22/17] Metoprolol Tartrate [Lopressor] 100 mg PO BID 05/17/17 [Last Taken 10/22/17] Multivitamin [Multivitamins] 1 ea PO DAILY 05/17/17 [Last Taken 10/22/17] amLODIPine BESYLATE [Norvasc] 10 mg PO DAILY 05/17/17 [Last Taken 10/22/17] Albuterol Sulfate/Ipratropium [Duoneb 2.5-0.5MG/3ML Soln] 3 ml IH Q4HRT #60 nebu 05/20/17 [Last Taken 10/22/17] Acetaminophen [Tylenol] 650 mg PO Q4H PRN tab 08/30/17 [Last Taken Unknown] polysaccharide iron complex 150 mg iron capsule 150 mg PO DAILY cap 09/01/17 [Last Taken 10/22/17] sennosides 8.6 mg tablet 17.2 mg PO DAILY PRN tab 09/01/17 [Last Taken 10/22/17] sodium chloride 3 % for nebulization 4 ml IH Q6H 09/20/17 [Last Taken 10/22/17] montelukast 10 mg tablet 10 mg PO HS 30 Days #30 tab 10/31/17 [Last Taken Unknown] ranitidine 150 mg tablet 150 mg PO BID #60 tab 11/30/17 [Last Taken Unknown] Albuterol Sulfate 2.5 mg INHALATION Q4H PRN 12/01/17 [Last Taken Unknown] Saccharomyces Boulardii [Florastor] 250 mg PO BID #14 cap 12/05/17 [Last Taken Unknown] furosemide 40 mg tablet 40 mg PO DAILY #30 tab 12/12/17 [Last Taken Unknown] potassium chloride ER 10 mEq tablet,extended release 10 meq PO DAILY #90 tab 12/19/17 [Last Taken Unknown] cetirizine 10 mg capsule 10 mg PO HS #30 cap 01/02/18 [Last Taken Unknown] Chivo #5 Tracheostomy tube w/15mm adapter, regular length 6.2mm ID, 9mm OD, 68mm length 0 .ROUTE .MEDSUPPLY #4 ea 01/23/18 [Last Taken Unknown] - History of Present Illness Narrative: 57 year old male, with symptoms of pneumonia. He does have fever, chills. He has pradder willi syndrome with tracheostomy. He has had shortness of breath and cough tonight, with fever. Past medical history of breakthrough relief syndrome, obstructive sleep apnea status post tracheostomy 41 years ago, chronic obstructive pulmonary disease, diabetes mellitus type 2, recurrent pneumonias, who was admitted on 12/01/2017 because of cough and hemoptysis. He has been followed at [facility]. 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 Initiating event: Reports: upper resp illness Frequency of episodes: Reports: frequent episodes Modifying Factors - (Improves): Reports: activity Associated Symptoms-Dyspnea: Reports: fever/chills, sweating Prior Treatment: Denies: recently seen Review of Systems - Review of Systems Constitutional: Present: See HPI EYE: Present: no symptoms reported ENT: Present: no symptoms reported Respiratory: Present: shortness of breath, cough, wheezing Cardiology: Present: no symptoms reported Gastrointestinal/Abdominal: Present: no symptoms reported Genitourinary: Present: no symptoms reported Musculoskeletal: Present: joint swelling Skin: Present: no symptoms reported Neurological: Present: no symptoms reported Endocrine: Present: no symptoms reported Hematologic/Lymphatic: Present: no symptoms reported Psych: Present: no symptoms reported Medical History (Last Reviewed 02/25/18 @ 03:47 by Jordan Ramires MD) Tracheostomy in place (Chronic) Aortic aneurysm with dissection (Chronic) 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) Onset Date: ~08/31/15 Sleep apnea (Chronic) Anemia (Chronic) Onset Date: ~09/11/12 Diabetes mellitus (Chronic) Asthma (Chronic) Pickwickian syndrome (Chronic) Onset Date: ~09/11/12 Prader-Willi syndrome (Chronic) Onset Date: ~09/11/12 Aortic dissection Back pain CHF (congestive heart failure) Obstructive sleep apnea Pneumonia Recurrent pneumonia Scoliosis yuniel in back Tracheostomy in place alternating vision can only see out of 1 eye at a time Eating disorder Prader-Willi Surgical History: Surgical History (Last Reviewed 02/02/18 @ 08:41 by Tim Sharp MD) Femur fracture H/O gastric bypass Onset Date: ~1975 H/O heart surgery Onset Date: ~04/29/17 aortic dissection-[facility] H/O tracheostomy History of right knee joint replacement Hx of gastric bypass Family History: Family History (Last Reviewed 02/02/18 @ 08:41 by Tim Sharp MD) Grandfather Lung cancer Uncle Lung cancer Other Father Diabetes, depression mother with Anxiety nd Hypertension mother with depression Social History: Preferred Language Croatian Smoking Status Never smoker Abuse History No History of abuse Psych History No pertinent hx (Last Updated 02/02/18 @ 08:47 by Tim Sharp MD) No Social History Section defined Physical Exam - Physical Exam General Appearance: Present: alert, mild distress Head Exam: Present: normal inspection, no evidence of injury Eye Exam: Normal inspection: bilateral, PERRL: bilateral, EOMI: bilateral Ears, Nose, Throat: Present: normal ENT inspection, normal pharynx, other - trach in place Neck: Present: normal inspection, nontender Respiratory: Present: decreased breath sounds, expiration (prolonged), wheezing Cardiovascular/Chest: Present: regular rate, rhythm, no murmur, normal peripheral pulses, tachycardia Gastrointestinal/Abdominal: Present: normal bowel sounds, nontender, nondistended, soft, no organomegaly Back Exam: Present: normal inspection, normal range of motion, no CVA tenderness, no vertebral tenderness Extremity Exam: Present: non-tender, normal range of motion, pedal edema, extremity edema - 3 plus lower extremity pitting edema Neurological Exam: Present: alert, oriented, normal mood/affect Skin Exam: Present: normal color, warm/dry Lymphatic Exam: Present: no adenopathy Progress - Results and Orders Patient's Lab Results:: I have reviewed the patient's lab results. - Vital Signs Patient's Vital Signs:: I have reviewed the patient's vital signs. - EKG EKG: other - Sinus tachycardia rate 136 - X-Ray X-Ray #1 Interpretation: Interp. by me, Reviewed by me - cxr cardiomegaly, left lower lobe pneumonia Plan - Plan Plan: admitted to Dr. Fisher. I discussed thoracic aortic aneurysm with family. They elected not to repair this, it was evaluated extensively in [facility]. He will be admitted to our facility for aspiration pneumonia. Departure Clinical Impression: Aspiration pneumonia due to food (regurgitated) - Departure Disposition: Still a patient Condition: Fair Referrals: Tim Sharp MD [Primary Care Provider] -
[2018-02-25] MEDS ORDERED: NORMAL SALINE 1,000 ML IV ONE ×2 (03:57→07:54)
[2018-02-25] MEDS ORDERED: ACETAMINOPHEN 325 MG TABLET PO ONE (03:58)
[2018-02-25] MEDS ORDERED: cefTRIAXone SODIUM 1,000 MG/100 ML BAG IV ONE (04:15)
[2018-02-25] MEDS ORDERED: AZITHROMYCIN 250 MG TABLET PO ONE (04:16)
[2018-02-25 04:26] LABS: Hematocrit 40.3 % (42.0-52.0); Hemoglobin 12.5 gm/dL (13.5-18.0); Mean Cell Volume 90.8 fl (78-100); Mean Corpuscular Hemoglobin 28.2 pg (27-31); Mean Platelet Volume 8.7 fl (8-11.3); Neutrophil # 13.5 K/mm3 (1.3-6.0); Neutrophil % 90.9 % (42-75.0); Platelet Count 202 K/mm3 (150-450); Red Blood Count 4.44 M/mm3 (4.7-6.0); Red Cell Distribution Width 14.6 % (11.5-14.0); White Blood Count 14.9 K/mm3 (4.0-10.5)
[2018-02-25 04:38] LABS: Partial Thrombolplastin Time 22.1 Seconds (24-32)
[2018-02-25 04:52] LABS: Albumin * 3.3 gm/dl (3.4-5.0); Anion Gap 13.4 mmol/L (6.8-13.8); BUN/Creatinine Ratio 24.2 (9.0-21.6); Bilirubin, Total 0.3 mg/dL (0.0-1.1); CRP 0.3 mg/dL (0.0-0.9); Ca. Corrected For Albumin 8.9 mg/dL (8.4-10.2); Calcium * 8.7 mg/dL (7.9-10.9); Carbon Dioxide 32.6 mmol/L (24-32.6); Total Protein 7.2 gm/dL (6.2-8.2)
[2018-02-25 04:54] LABS: Troponin I 0.021 ng/mL (0.00-0.10)
[2018-02-25 04:54] LABS: Urine Bilirubin Negative (NEGATIVE); Urine Ketone Negative (NEGATIVE); Urine Nitrite Negative (NEGATIVE); Urine Protein Negative (NEGATIVE); Urine Urobilinogen Normal (NORMAL)
[2018-02-25 05:03] LABS: Urine Appearance Clear (CLEAR); Urine Bacteria None Seen; Urine Blood 5 /ul (NEGATIVE); Urine Color Yellow; Urine RBC TRACE /hpf (0-5); Urine WBC None Seen /hpf (0-5)
--- NOTE | 2018-02-25 07:10 | HP ---
Chief Complaint - Chief Complaint Date of Service: 02/25/18 Time of Service: 07:08 Chief Complaint: Fever, with productive cough, worsening SOB History of Present Illness: Patient is a 57-year-old male with past medical history significant for tracheostomy due to pickwickian syndrome. He has had multiple pneumonias over the past year. He has obstructive sleep apnea and does wear oxygen and uses a CPAP at night. He does not wear oxygen during the day. (History as per ER report as patient and caregiver are asleep at time of evaluation). Patient was in his usual state of health until the evening prior to admission when he began having a more productive cough, increasing shortness of breath and began running fevers. This is his typical scenario prior to developing a pneumonia. In the ER he was noted to be in respiratory distress with a respiratory rate of 40, O2 sats of 87% on room air and heart rate of 136. Labs were drawn which showed a white count of 14.6 with a bandemia of 13.5, his temperature was 38.7, his lactic acid was 2.7 and his chest x-ray was read as a left lower lobe pneumonia though it appears he may have a right middle lobe pneumonia as well. (No official report from radiology at this time though.) He was admitted for an aspiration pneumonia under observations but I believe patient meets criteria for sepsis and should be made inpatient. I anticipate him being here minimum of 2 midnights. And goal will be to see resolution of his leukocytosis, return to baseline of his heart rate and respiratory rate and to be off O2 at time of discharge. 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) Onset Date: ~08/31/15 Sleep apnea (Chronic) Anemia (Chronic) Onset Date: ~09/11/12 Diabetes mellitus (Chronic) Asthma (Chronic) Pickwickian syndrome (Chronic) Onset Date: ~09/11/12 Prader-Willi syndrome (Chronic) Onset Date: ~09/11/12 Aortic dissection Back pain CHF (congestive heart failure) Obstructive sleep apnea Pneumonia Recurrent pneumonia Scoliosis yuniel in back Tracheostomy in place alternating vision can only see out of 1 eye at a time Eating disorder Prader-Willi Surgical History: Surgical History (Last Reviewed 02/25/18 @ 06:24 by Callie Roche RN) Femur fracture H/O gastric bypass Onset Date: ~1975 H/O heart surgery Onset Date: ~04/29/17 aortic dissection-[facility] H/O tracheostomy History of right knee joint replacement Hx of gastric bypass Family History: Family History (Last Reviewed 02/25/18 @ 06:24 by Callie Roche RN) Grandfather Lung cancer Uncle Lung cancer Other Father Diabetes, depression mother with Anxiety nd Hypertension mother with depression Social History: Patient Lives/Resources With Parents Utilized Preferred Language Par[place] Do you have any synagogue or Yes: sikhism cultural preference? Smoking Status Never smoker Have you smoked in the past 12 No months Abuse History No History of abuse Psych History No pertinent hx (Last Updated 02/02/18 @ 08:47 by Tim Sharp MD) No Social History Section defined Review Of Systems (GEN) - Review of Systems Generalized/Overall Review: Present: Weakness, Chills, Fever, Malaise EENTM: Present: No Symptoms Reported Respiratory: Present: Cough, Shortness of Breath, Wheezing Cardiac: Present: Chest Pain. Absent: Palpitations Abdominal: Present: No Symptoms Reported Genitourinary: Present: No Symptoms Reported Musculoskeletal: Present: No Symptoms Reported Neurological: Present: Weakness Skin: Present: No Symptoms Reported Endocrine: Present: No Symptoms Reported Immunizations: IMMUNIZATION HX Immunizations Up to Date Yes History of Influenza Vaccine Yes Hx Pneumococcal Vaccination Yes Allergies/Adverse Reactions: Allergies Allergy/AdvReac Type Severity Reaction Status Date / Time No Known Allergies Allergy Verified 02/25/18 06:24 Home Medications: HOME MEDICATIONS Docusate Sodium 100 mg PO BID PRN 04/26/17 [Last Taken 10/22/17] Fluticasone Propionate [Flovent Hfa] 220 mcg IH BID 04/26/17 [Last Taken 10/22/17] metFORMIN HCL [Glucophage] 850 mg PO BIDWM 04/26/17 [Last Taken 10/22/17] Calcium Carbonate/Vitamin D3 [Calcium 500-Vit D3 200 Tablet] 1 ea PO DAILY 05/17/17 [Last Taken 10/22/17] Metoprolol Tartrate [Lopressor] 100 mg PO BID 05/17/17 [Last Taken 10/22/17] Multivitamin [Multivitamins] 1 ea PO DAILY 03/27/18 [Last Taken 10/22/17] amLODIPine BESYLATE [Norvasc] 10 mg PO DAILY 05/17/17 [Last Taken 10/22/17] sodium chloride 3 % for nebulization 4 ml IH Q6H 09/20/17 [Last Taken 10/22/17] montelukast 10 mg tablet 10 mg PO HS 30 Days #30 tab 10/31/17 [Last Taken Unknown] ranitidine 150 mg tablet 150 mg PO BID #60 tab 11/30/17 [Last Taken Unknown] Albuterol Sulfate 2.5 mg INHALATION Q4H PRN 12/01/17 [Last Taken Unknown] Saccharomyces Boulardii [Florastor] 250 mg PO BID #14 cap 12/05/17 [Last Taken Unknown] furosemide 40 mg tablet 40 mg PO DAILY #30 tab 12/12/17 [Last Taken Unknown] potassium chloride ER 10 mEq tablet,extended release 10 meq PO DAILY #90 tab 12/19/17 [Last Taken Unknown] cetirizine 10 mg capsule 10 mg PO HS #30 cap 01/02/18 [Last Taken Unknown] Chivo #5 Tracheostomy tube w/15mm adapter, regular length 6.2mm ID, 9mm OD, 68mm length 0 .ROUTE .MEDSUPPLY #4 ea 01/23/18 [Last Taken Unknown] Exam - Exam Vital Signs: Vital Signs - Last Taken Temp 37.9 C 02/25/18 06:25 Pulse 95 02/25/18 06:25 Resp 24 H 02/25/18 06:25 BP 134/73 02/25/18 06:25 Pulse Ox 94 02/25/18 06:25 Constitutional: Present: Moderate distress, Lethargic Neck: Present: supple Respiratory: Present: accessory muscle use, rales - RML, Lam[place] LL, wheezing, expiration (prolonged) Cardiovascular/Chest: Present: no murmur, tachycardia Abdomen: Present: Normal bowel sounds, soft, nontender, obese Extremity: Present: lower extremity edema Skin Exam: Present: normal color, warm/dry Diagnostic Studies: Abnormal Lab Results 02/25/18 02/25/18 02/25/18 Range/Units 04:20 04:20 04:20 WBC 14.9 H (4.0-10.5) K/mm3 RBC 4.44 L (4.7-6.0) M/mm3 Hgb 12.5 L (13.5-18.0) gm/dL Hct 40.3 L (42.0-52.0) % MCHC 31.0 L (32-36) g/dl RDW 14.6 H (11.5-14.0) % Immature Gran # (Auto) 0.05 H (0.000-0.0310) K/mm3 Neutrophils % 90.9 H (42-75.0) % Lymphocytes % 4.6 L (20-51) % Neutrophils # 13.5 H (1.3-6.0) K/mm3 Lymphocytes # 0.68 L (1.5-3.5) k/mm3 PTT (Kylah) 22.1 L (24-32) Seconds Plasma Sodium 143 H (130-142) mmol/L Est GFR (Non-Af Amer) 132 H D (60-130) mL/min BUN/Creatinine Ratio 24.2 H (9.0-21.6) Random Glucose 169 H (70-110) mg/dL Lactic Acid, Venous (0.4-2.0) mmol/L B-Natriuretic Peptide 842 H (5-175) pg/mL Albumin 3.3 L (3.4-5.0) gm/dl Urine Blood (NEGATIVE) /ul 02/25/18 02/25/18 Range/Units 04:20 04:45 WBC (4.0-10.5) K/mm3 RBC (4.7-6.0) M/mm3 Hgb (13.5-18.0) gm/dL Hct (42.0-52.0) % MCHC (32-36) g/dl RDW (11.5-14.0) % Immature Gran # (Auto) (0.000-0.0310) K/mm3 Neutrophils % (42-75.0) % Lymphocytes % (20-51) % Neutrophils # (1.3-6.0) K/mm3 Lymphocytes # (1.5-3.5) k/mm3 PTT ([place]) (24-32) Seconds Plasma Sodium (130-142) mmol/L Est GFR (Non-Af Amer) (60-130) mL/min BUN/Creatinine Ratio (9.0-21.6) Random Glucose (70-110) mg/dL Lactic Acid, Venous 2.7 H* (0.4-2.0) mmol/L B-Natriuretic Peptide (5-175) pg/mL Albumin (3.4-5.0) gm/dl Urine Blood 5 H (NEGATIVE) /ul Laboratory Results WBC 14.9 K/mm3 (4.0-10.5) H 02/25/18 04:20 RBC 4.44 M/mm3 (4.7-6.0) L 02/25/18 04:20 Hgb 12.5 gm/dL (13.5-18.0) L 02/25/18 04:20 Hct 40.3 % (42.0-52.0) L 02/25/18 04:20 MCV 90.8 fl (78-100) 02/25/18 04:20 MCH 28.2 pg (27-31) 02/25/18 04:20 MCHC 31.0 g/dl (32-36) L 02/25/18 04:20 RDW 14.6 % (11.5-14.0) H 02/25/18 04:20 Plt Count 202 K/mm3 (150-450) 02/25/18 04:20 MPV 8.7 fl (8-11.3) 02/25/18 04:20 Immature Gran % (Auto) 0.30 % (0.001-0.429) 02/25/18 04:20 Immature Gran # (Auto) 0.05 K/mm3 (0.000-0.0310) H 02/25/18 04:20 Neutrophils % 90.9 % (42-75.0) H 02/25/18 04:20 Lymphocytes % 4.6 % (20-51) L 02/25/18 04:20 Monocytes % 3.3 % (0.0-9) 02/25/18 04:20 Eosinophils % 0.6 % (0.0-3.0) 02/25/18 04:20 Basophils % 0.3 % (0.0-1.0) 02/25/18 04:20 Nucleated RBC % 0.0 k/mm3 (0-1) 02/25/18 04:20 Neutrophils # 13.5 K/mm3 (1.3-6.0) H 02/25/18 04:20 Lymphocytes # 0.68 k/mm3 (1.5-3.5) L 02/25/18 04:20 Monocytes # 0.5 k/mm3 (0.0-1.0) 02/25/18 04:20 Eosinophils # 0.1 k/mm3 (0.0-0.7) 02/25/18 04:20 Absolute Basophils 0.1 k/mm3 (0.0-0.1) 02/25/18 04:20 PT 10.0 Seconds (9.0-11.0) 02/25/18 04:20 INR (Anticoag Therapy) 1.00 INR (0.90-1.10) 02/25/18 04:20 PTT (Kylah) 22.1 Seconds (24-32) L 02/25/18 04:20 Sodium 142 mmol/L (132-142) 02/25/18 04:20 Plasma Sodium 143 mmol/L (130-142) H 02/25/18 04:20 Potassium 4.0 mmol/L (3.4-4.6) 02/25/18 04:20 Chloride 100 mmol/L (97-106) 02/25/18 04:20 Carbon Dioxide 32.6 mmol/L (24-32.6) 02/25/18 04:20 Anion Gap 13.4 mmol/L (6.8-13.8) 02/25/18 04:20 BUN 16 mg/dL (6-23) D 02/25/18 04:20 Creatinine 0.66 mg/dL (0.4-1.4) 02/25/18 04:20 Est GFR (Non-Af Amer) 132 mL/min (60-130) H D 02/25/18 04:20 BUN/Creatinine Ratio 24.2 (9.0-21.6) H 02/25/18 04:20 Random Glucose 169 mg/dL (70-110) H 02/25/18 04:20 Lactic Acid, Venous 2.7 mmol/L (0.4-2.0) H* 02/25/18 04:20 Calcium 8.7 mg/dL (7.9-10.9) 02/25/18 04:20 Calcium Adj for Albumin 8.9 mg/dL (8.4-10.2) 02/25/18 04:20 Total Bilirubin 0.3 mg/dL (0.0-1.1) 02/25/18 04:20 AST 28 U/L (0-48) 02/25/18 04:20 ALT 25 U/L (19-67) 02/25/18 04:20 Alkaline Phosphatase 88 U/L (50-170) 02/25/18 04:20 Troponin I 0.021 ng/mL (0.00-0.10) 02/25/18 04:20 C-Reactive Prot, Quant 0.3 mg/dL (0.0-0.9) 02/25/18 04:20 B-Natriuretic Peptide 842 pg/mL (5-175) H 02/25/18 04:20 Total Protein 7.2 gm/dL (6.2-8.2) 02/25/18 04:20 Albumin 3.3 gm/dl (3.4-5.0) L 02/25/18 04:20 Urine Color Yellow 02/25/18 04:45 Urine Appearance Clear (CLEAR) 02/25/18 04:45 Urine pH 6.0 pH (5.0-7.0) 02/25/18 04:45 Ur Specific [place] 1.020 SP.GR. (1.005-1.030) 02/25/18 04:45 Urine Protein Negative mg/dL (NEGATIVE) 02/25/18 04:45 Urine Glucose (UA) Negative mg/dL (NEGATIVE) 02/25/18 04:45 Urine Ketones Negative mg/dL (NEGATIVE) 02/25/18 04:45 Urine Blood 5 /ul (NEGATIVE) H 02/25/18 04:45 Urine Nitrate Negative (NEGATIVE) 02/25/18 04:45 Urine Bilirubin Negative mg/dl (NEGATIVE) 02/25/18 04:45 Urine Urobilinogen Normal EU/dl (NORMAL) 02/25/18 04:45 Ur Leukocyte Esterase Negative /ul (NEGATIVE) 02/25/18 04:45 Urine RBC Trace /hpf (0-5) 02/25/18 04:45 Urine WBC None seen /hpf (0-5) 02/25/18 04:45 Ur Epithelial Cells Trace /hpf (0-5) 02/25/18 04:45 Urine Bacteria None seen (NONE) 02/25/18 04:45 Urine Culture Comments No culture indicated 02/25/18 04:45 Influenza Type A Ag Negative (NEGATIVE) 02/25/18 04:45 Influenza Type B Ag Negative (NEGATIVE) 02/25/18 04:45 Assessment/Plan - Assessment/Plan (1) Sepsis Assessment: Given his leukocytosis with bandemia, lactic acid 2.7, respiratory rate of 40 and a heart rate of 136 with an O2 sat of 87% and a fever to 38.7, I believe patient meets criteria for sepsis and should be inpatient. He is high risk for mortality or morbidity given his past medical history and multiple core comorbidities. Problem: Acute Qualifiers: Sepsis type: sepsis due to unspecified organism Qualified Code(s): A41.9 - Sepsis, unspecified organism (2) Pneumonia Assessment: Patient has findings consistent with a right middle lobe pneumonia on physical exam. Also left lower lobe pneumonia. ERP felt that he had a repeat aspiration pneumonia. Consideration for putting him on lisinopril as research does show that this may decrease risk for aspiration pneumonia. He is at increased risk of aspiration pneumonia given his pickwickian syndrome, his Agusto will he, tracheostomy and obstructive sleep apnea. He was given azithromycin and ceftriaxone in the ER but this does not have great coverage for aspiration pneumonia so we will switch him to clindamycin 600 mg IV every 8 hours and monitor his response to this. Problem: Acute Qualifiers: Pneumonia type: aspiration pneumonia Laterality: right Lung location: middle lobe of lung (3) Respiratory failure with hypoxia Assessment: Patient normally is not on oxygen except at night. We will continue him on O2 to keep his sats above 88%. We will re-wean him as tolerated. But expect him to be back to his baseline of being off O2 at time of discharge. Should he need to go home on O2 to finish recovering he at least does have O2 at home. Problem: Acute Qualifiers: Chronicity: acute (4) Diabetes Assessment: For his diabetes, he usually is well controlled but due to his hypoxia and sepsis we will hold his metformin for now and put him on a sliding scale insulin and consistent carb diet. We will resume his metformin at time of discharge assuming that his condition is stable enough to warrant resumption of med. Problem: Chronic Qualifiers: (5) Tracheostomy dependence Assessment: We will continue his tracheostomy with no plan changes to this. He currently wears a non-cuffed trach. Question would be whether he would have fewer problems if he had a cuff trach. Problem: Chronic (6) Discharge planning issues Assessment: Discharge will be pending outpatient responds to inpatient therapy. I expect him to be off O2 during the day returning to baseline of bedtime only use of O2. Also switching him to oral antibiotics for 24 hours prior to discharge to be sure he continues to improve. I do expect him to be here a minimum of 2 midnights. Discharging him too soon has a high rate and risk of morbidity, readmission and possible mortality. Problem: Acute
[2018-02-25] MEDS ORDERED: DOCUSATE SODIUM 100 MG CAPSULE PO PRN (07:21)
[2018-02-25] MEDS ORDERED: ALBUTEROL SULFATE 2.5 MG/0.5 ML VIAL.NEB IH PRN (07:21)
[2018-02-25] MEDS ORDERED: ACETAMINOPHEN 500 MG TABLET PO PRN (07:43)
[2018-02-25] MEDS: CLINDAMYCIN PHOSPHATE 600 MG in DEXTROSE 5 % IN WATER 100 ML IV SCH ×6 (07:55→22:53)
[2018-02-25] MEDS: BUDESONIDE 0.5 MG/2 ML VIAL.NEB IH SCH ×2 (08:11→18:08)
[2018-02-25] MEDS: ALBUTEROL SULFATE/IPRATROPIUM 3 ML NEBU IH SCH ×2 (08:26→18:08)
[2018-02-25] MEDS: POTASSIUM CHLORIDE 10 MEQ TABLET.SA PO SCH (09:05)
[2018-02-25] MEDS: METOPROLOL TARTRATE 100 MG TABLET PO SCH ×2 (09:06→20:14)
[2018-02-25] MEDS: amLODIPine BESYLATE 10 MG TABLET PO SCH (09:06)
[2018-02-25] MEDS: FAMOTIDINE 20 MG TABLET PO SCH ×2 (09:06→20:15)
[2018-02-25] MEDS: FUROSEMIDE 40 MG TABLET PO SCH (09:06)
[2018-02-25] MEDS: INSULIN REGULAR, HUMAN 100 UNITS/ML VIAL SC SCH ×3 (11:58→20:22)
[2018-02-25] MEDS: LORATADINE 10 MG TABLET PO SCH (20:14)
[2018-02-25] MEDS: MONTELUKAST SODIUM 10 MG TABLET PO SCH (20:15)
[2018-02-26] MEDS: BUDESONIDE 0.5 MG/2 ML VIAL.NEB IH SCH ×2 (06:07→18:21)
[2018-02-26] MEDS: ALBUTEROL SULFATE/IPRATROPIUM 3 ML NEBU IH SCH ×6 (06:07→22:11)
--- NOTE | 2018-02-26 06:48 | PN ---
Subjective - Date and Time Seen Date: 02/26/18 Time: 06:48 Subjective Narrative: Patient has no complaints this morning. He feels better overall. They have been suctioning him and been getting a great deal of mucus out of his cannula (tracheostomy). Patient denies any chest pain, nausea or vomiting. He has been on a consistent carbohydrate diet his sugars have been up in the low 200s but mainly in the mid 100s. Corrections have been done with a low-dose sliding scale insulin. Objective - Review of Systems Generalized/Overall Review: Reports: Weakness. Denies: Chills, Fever EENTM: Reports: No Symptoms Reported Respiratory: Reports: Cough, Shortness of Breath Cardiac: Reports: Edema. Denies: Chest Pain, Palpitations Abdominal: Reports: No Symptoms Reported Genitourinary Symptoms: Reports: No Symptoms Reported Musculoskeletal Complaints: Reports: No Symptoms Reported Neurological: Reports: No Symptoms Reported Skin: Reports: No Symptoms Reported Endocrine: Reports: No Symptoms Reported - Vitals Vitals: Last Vital Signs Temp 36.8 C 02/26/18 03:00 Pulse 61 02/26/18 06:17 Resp 24 H 02/26/18 06:17 BP 136/60 02/26/18 03:00 Pulse Ox 93 02/26/18 06:26 - Exam Constitutional: Present: Alert, Oriented x3, Cooperative, Mild distress, Obese ENT Exam: Present: hearing grossly normal Neck: Present: supple Respiratory: Present: accessory muscle use, rales - RML and LLL, wheezing, exp iration (prolonged) Cardiovascular/Chest: Present: regular rate, rhythm, systolic murmur Abdomen: Present: Normal bowel sounds, soft, nontender, nondistended Extremity: Present: no calf tenderness, pedal edema Skin Exam: Present: normal color Neurologic: Present: hand fur cleaner II-XII nml as tested, normal mood/affect, oriented x 3 Appearance: Present: appropriate appearance, appropriate insight, neat Eye contact: Present: cooperative, good eye contact Thoughts: Present: normal thought pattern, no apparent hallucination Assessment/Plan - Problems/Diagnosis (1) Sepsis Problem: Acute Qualifiers: Sepsis type: sepsis due to unspecified organism Qualified Code(s): A41.9 - Sepsis, unspecified organism Narrative: Sepsis appears to be resolved given his improved heart rate, respiratory rate now down in the teens, he has been afebrile for 12 hours. We will hold all IV fluids for now and just treat his pneumonia with the clindamycin. (2) Pneumonia Problem: Acute Qualifiers: Pneumonia type: aspiration pneumonia Laterality: right Lung location: middle lobe of lung Narrative: Pneumonia, most likely aspiration given his history. He does appear to be responding well to the clindamycin so we will continue this as this gives as broad coverage for typical pneumonias as well as aspiration pneumonia. He also can easily transition him from IV antibiotics to p.o. antibiotics at time of discharge. He is definitely looking a lot better today than he did yesterday but still requiring O2 during the day to keep his sats in the low 90s. We will try to wean him off his oxygen today back to his normal baseline. (3) Respiratory failure with hypoxia Problem: Acute Qualifiers: Chronicity: acute Qualified Code(s): J96.01 - Acute respiratory failure with hypoxia Narrative: Patient still requiring O2 to keep his sats into the low 90s. We will work on weaning him off O2 today. Respiratory failure is definitely improved though. We will continue suctioning as this also seems to improve his oxygenation. 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 We will continue sliding scale insulin while here in the hospital but will resume his metformin at time of discharge. (5) Tracheostomy dependence Problem: Chronic Narrative: Patient continues with his tracheostomy. Suctioning appears to improve his overall function. I believe he has suction capability at home so we will recommend frequent suctioning at home as this may be increasing his risk for his aspiration pneumonias at home. (6) Discharge planning issues Problem: Acute Narrative: Patient overall is doing well. He is greatly improved since admission. Still requiring some O2 to keep his sats in the low 90s during the daytime and he typically does not use oxygen at home except at night due to his obstructive sleep apnea and hypoventilation at night due to his obesity/Prader-Willi syndrome. Goal is to try to wean him off supplemental O2 prior to discharge home, though could possibly discharge in the morning since he does have O2 at home, assuming he continues to improve.
[2018-02-26] MEDS: INSULIN REGULAR, HUMAN 100 UNITS/ML VIAL SC SCH ×4 (06:54→20:28)
[2018-02-26] MEDS: CLINDAMYCIN PHOSPHATE 600 MG in DEXTROSE 5 % IN WATER 100 ML IV SCH ×6 (07:37→23:08)
[2018-02-26] MEDS: METOPROLOL TARTRATE 100 MG TABLET PO SCH ×2 (08:11→20:22)
[2018-02-26] MEDS: amLODIPine BESYLATE 10 MG TABLET PO SCH (08:11)
[2018-02-26] MEDS: FUROSEMIDE 40 MG TABLET PO SCH (08:11)
[2018-02-26] MEDS: FAMOTIDINE 20 MG TABLET PO SCH ×2 (08:11→20:24)
[2018-02-26] MEDS: POTASSIUM CHLORIDE 10 MEQ TABLET.SA PO SCH (08:11)
[2018-02-26] MEDS: MONTELUKAST SODIUM 10 MG TABLET PO SCH (20:22)
[2018-02-26] MEDS: LORATADINE 10 MG TABLET PO SCH (20:23)
[2018-02-27] MEDS: ALBUTEROL SULFATE/IPRATROPIUM 3 ML NEBU IH SCH ×3 (02:52→10:09)
[2018-02-27] MEDS: BUDESONIDE 0.5 MG/2 ML VIAL.NEB IH SCH (06:02)
--- NOTE | 2018-02-27 07:04 | PN ---
Progess Note - Interim Date: 02/27/18 Time: 07:01 Narrative: 02/27/18 07:01 Pt. asleep this am, but comfortable, with no signs of respiratory distress. 88% on 2L via trach. Lungs sounds greatly improved. A/P: Pneumonia - improving, continue clindamycin PO Asthma - improving, continue duoneb qid Acute respiratory failure - improved, wean O2 D/C - later today if weaned off O2.
[2018-02-27] MEDS ORDERED: CLINDAMYCIN HCL 150 MG CAPSULE PO SCH (07:30)
[2018-02-27] MEDS: INSULIN REGULAR, HUMAN 100 UNITS/ML VIAL SC SCH ×2 (07:42→12:13)
[2018-02-27] MEDS: FUROSEMIDE 40 MG TABLET PO SCH (09:40)
[2018-02-27] MEDS: METOPROLOL TARTRATE 100 MG TABLET PO SCH (09:40)
[2018-02-27] MEDS: amLODIPine BESYLATE 10 MG TABLET PO SCH (09:40)
[2018-02-27] MEDS: FAMOTIDINE 20 MG TABLET PO SCH (09:40)
[2018-02-27] MEDS: POTASSIUM CHLORIDE 10 MEQ TABLET.SA PO SCH (09:40)
--- NOTE | 2018-02-27 12:38 | DS ---
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 He also was febrile with a temperature of 39.3, respiratory rate of 40 and a heart rate of 136. Was found to have a left lower lobe pneumonia felt to be possible aspiration as he has had recurrent aspiration pneumonias in the past. He received a dose of azithromycin and John ephin in the ER but this was changed to IV clindamycin 600 mg IV every 8 hours, showing tremendous improvement in his pulmonary function within 24 hours. His lactic acid was 2.7 upon admission, with this and other vital sign abnormalities and leukocytosis with a left shift consistent with sepsis. Patient was appropriately treated with antibiotics and did improve rapidly. For his diabetes he was placed on sliding scale insulin which kept his sugars for the most part less than 200. He will be re-started on his metformin at time of discharge. For his acute respiratory failure he was weaned down to 1 L of oxygen, keeping his sats in the low 90s. We were unable to wean him completely off oxygen prior to discharge but he does have oxygen at home which she wears mainly at night. Family was comfortable with taking him home and using oxygen until his lungs finished healing and he is able to be weaned off completely during the day. Is discharged home in good condition he is to follow-up with me 1 week after discharge. Procedures Performed: none Results and Findings: Pending Mircobiology Results 02/25/18 04:00 Blood Blood Culture - Preliminary NO GROWTH AFTER 48 HOURS 02/25/18 04:20 Blood Blood Culture - Preliminary NO GROWTH AFTER 48 HOURS Lab Pending Results 02/25/18 04:20: WBC 14.9 H, RBC 4.44 L, Hgb 12.5 L, Hct 40.3 L, MCV 90.8, MCH 28.2, MCHC 31.0 L, RDW 14.6 H, Plt Count 202, MPV 8.7, Immature Gran % (Auto) 0.30, Immature Gran # (Auto) 0.05 H, Neutrophils % 90.9 H, Lymphocytes % 4.6 L, Monocytes % 3.3, Eosinophils % 0.6, Basophils % 0.3, Nucleated RBC % 0.0, Neutrophils # 13.5 H, Lymphocytes # 0.68 L, Monocytes # 0.5, Eosinophils # 0.1, Absolute Basophils 0.1 02/25/18 04:20: PT 10.0, INR (Anticoag Therapy) 1.00, PTT ([place]) 22.1 L 02/25/18 04:20: Sodium 142, Plasma Sodium 143 H, Potassium 4.0, Chloride 100, Carbon Dioxide 32.6, Anion Gap 13.4, BUN 16 D, Creatinine 0.66, Est GFR (Non-Af Amer) 132 H D, BUN/Creatinine Ratio 24.2 H, Random Glucose 169 H, Calcium 8.7, Calcium Adj for Albumin 8.9, Total Bilirubin 0.3, AST 28, ALT 25, Alkaline Phosphatase 88, Troponin I 0.021, C-Reactive Prot, Quant 0.3, B-Natriuretic Peptide 842 H, Total Protein 7.2, Albumin 3.3 L 02/25/18 04:20: Lactic Acid, Venous 2.7 H* 02/25/18 04:45: Urine Color Yellow, Urine Appearance Clear, Urine pH 6.0, Ur Specific [place] 1.020, Urine Protein Negative, Urine Glucose (UA) Negative, Urine Ketones Negative, Urine Blood 5 H, Urine Nitrate Negative, Urine Bilirubin Negative, Urine Urobilinogen Normal, Ur Leukocyte Esterase Negative, Urine RBC Trace, Urine WBC None seen, Ur Epithelial Cells Trace, Urine Bacteria None seen, Urine Culture Comments No culture indicated 02/25/18 04:45: Influenza Type A Ag Negative, Influenza Type B Ag Negative 02/25/18 07:17: Lactic Acid, Venous 2.0 Discharge Location: Home Disposition: Home self-care Condition: Fair Discharge Activity: Activity as tolerated Discharge Diet: Consistent carbs Referrals: Tim hSarp MD [Primary Care Provider] - One Week Additional Patient Instructions (free text): -Please make TCM appointment unless senior living discharge. Thank you! Ángela @ [phone]. Prescriptions (Any new or edited meds): Clindamycin HCl [Cleocin] 600 mg PO Q8H #21 capsule Complete Home Medications List: Complete Home Medication List: Docusate Sodium 100 mg PO BID PRN 04/26/17 Fluticasone Propionate [Flovent Hfa] 220 mcg IH BID 04/26/17 metFORMIN HCL [Glucophage] 850 mg PO BIDWM 04/26/17 Calcium Carbonate/Vitamin D3 [Calcium 500-Vit D3 200 Tablet] 1 ea PO DAILY 05/17/17 Metoprolol Tartrate [Lopressor] 100 mg PO BID 05/17/17 Multivitamin [Multivitamins] 1 ea PO DAILY 05/17/17 amLODIPine BESYLATE [Norvasc] 10 mg PO DAILY 05/17/17 sodium chloride 3 % for nebulization 4 ml IH Q6H 09/20/17 montelukast 10 mg tablet 10 mg PO HS 30 Days #30 tab 10/31/17 ranitidine 150 mg tablet 150 mg PO BID #60 tab 11/30/17 Saccharomyces Boulardii [Florastor] 250 mg PO BID #14 cap 12/05/17 furosemide 40 mg tablet 40 mg PO DAILY #30 tab 12/12/17 potassium chloride ER 10 mEq tablet,extended release 10 meq PO DAILY #90 tab 12/19/17 cetirizine 10 mg capsule 10 mg PO HS #30 cap 01/02/18 Chivo #5 Tracheostomy tube w/15mm adapter, regular length 6.2mm ID, 9mm OD, 68mm length 0 .ROUTE .MEDSUPPLY #4 ea 01/23/18 Acetaminophen [Tylenol] 1,000 mg PO Q6H PRN tablet 02/27/18 Albuterol Sulfate/Ipratropium [Duoneb 2.5-0.5MG/3ML Soln] 3 ml IH Q4HRT nebu 02/27/18 Clindamycin HCl [Cleocin] 600 mg PO Q8H #21 capsule 02/27/18
[2018-02-27 14:59] VITALS: BP 114/65
== END 2018-02-27 15:15 | disposition home or self-care (01) | DRG 871 ==
LOC: MS 03:36 → ER 03:36 → MS 05:55
PROVIDERS: ADMIT Internal Medicine; ATTEND Family Medicine
DX: J44.9 Chronic obstructive pulmonary disease, unspecified; J96.01 Acute respiratory failure with hypoxia; Q87.1 Congenital malformation syndromes predominantly associated with short stature; Z96.651 Presence of right artificial knee joint; Z79.84 Long term (current) use of oral hypoglycemic drugs; I50.9 Heart failure, unspecified; Z98.84 Bariatric surgery status; Z68.38 Body mass index [BMI] 38.0-38.9, adult; J69.0 Pneumonitis due to inhalation of food and vomit; Z79.51 Long term (current) use of inhaled steroids; Z82.49 Family history of ischemic heart disease and other diseases of the circulatory system; Z87.01 Personal history of pneumonia (recurrent); I71.2 Thoracic aortic aneurysm, without rupture; A41.9 Sepsis, unspecified organism; Z93.0 Tracheostomy status; E11.9 Type 2 diabetes mellitus without complications; D64.9 Anemia, unspecified
CPT/HCPCS: 36415; 71010; 71045; 80053; 81001; 83519; 83605; 83880; 84484; 85025; 85610; 85730; 86140; 87040; 87400; 87449; 93005; 94640; 94664; 96365; 99285

== ENCOUNTER 2018-04-12 07:35 | Inpatient (IN) ==
[2018-04-12] MEDS ORDERED: ALBUTEROL SULFATE 2.5 MG/0.5 ML VIAL.NEB IH ONE (07:46)
[2018-04-12 07:59] LABS: Hematocrit 41.7 % (42.0-52.0); Hemoglobin 12.5 gm/dL (13.5-18.0); Mean Cell Volume 92.1 fl (78-100); Mean Corpuscular Hemoglobin 27.6 pg (27-31); Mean Platelet Volume 8.6 fl (8-11.3); Neutrophil # 6.9 K/mm3 (1.3-6.0); Neutrophil % 79.1 % (42-75.0); Platelet Count 204 K/mm3 (150-450); Red Blood Count 4.53 M/mm3 (4.7-6.0); White Blood Count 8.7 K/mm3 (4.0-10.5)
--- NOTE | 2018-04-12 08:02 | ERNOTE ---
<Mat Lopez - Last Filed: 04/12/18 07:42> Dyspnea - General Presenting Symptoms: other - found unresponsive, has trach with O2 at night Time Seen by Provider: 04/12/18 07:41 Source: patient Exam Limitations: no limitations - Immun/Allergies/Home Medications Immunizations: IMMUNIZATION HX Immunizations Up to Date Yes History of Influenza Vaccine Yes Hx Pneumococcal Vaccination Yes Allergies/Adverse Reactions: Allergies No Known Allergies Allergy (Verified 03/06/18 15:31) Home Medications: HOME MEDICATIONS Docusate Sodium 100 mg PO BID PRN 04/26/17 [Last Taken 10/22/17] Fluticasone Propionate [Flovent Hfa] 220 mcg IH BID 04/26/17 [Last Taken 02/24/18] metFORMIN HCL [Glucophage] 850 mg PO BIDWM 04/26/17 [Last Taken 02/24/18] Calcium Carbonate/Vitamin D3 [Calcium 500-Vit D3 200 Tablet] 1 ea PO DAILY 05/17/17 [Last Taken 02/24/18] Metoprolol Tartrate [Lopressor] 100 mg PO BID 05/17/17 [Last Taken 02/24/18] Multivitamin [Multivitamins] 1 ea PO DAILY 05/17/17 [Last Taken 02/24/18] amLODIPine BESYLATE [Norvasc] 10 mg PO DAILY 05/17/17 [Last Taken 02/24/18] sodium chloride 3 % for nebulization 4 ml IH Q6H 09/20/17 [Last Taken 02/25/18] montelukast 10 mg tablet 10 mg PO HS 30 Days #30 tab 10/31/17 [Last Taken 02/24/18] ranitidine 150 mg tablet 150 mg PO BID #60 tab 11/30/17 [Last Taken 02/24/18] Saccharomyces Boulardii [Florastor] 250 mg PO BID #14 cap 12/05/17 [Last Taken 02/24/18] furosemide 40 mg tablet 40 mg PO DAILY #30 tab 12/12/17 [Last Taken 02/24/18] cetirizine 10 mg capsule 10 mg PO HS #30 cap 01/02/18 [Last Taken 02/24/18] Chivo #5 Tracheostomy tube w/15mm adapter, regular length 6.2mm ID, 9mm OD, 68mm length 0 .ROUTE .MEDSUPPLY #4 ea 01/23/18 [Last Taken Unknown] Acetaminophen [Tylenol] 1,000 mg PO Q6H PRN tab 02/27/18 [Last Taken Unknown] Albuterol Sulfate/Ipratropium [Duoneb 2.5-0.5MG/3ML Soln] 3 ml INHALATION Q4HRT nebu 02/27/18 [Last Taken Unknown] Clindamycin HCl [Cleocin] 600 mg PO Q8H #21 cap 02/27/18 [Last Taken Unknown] potassium chloride ER 10 mEq tablet,extended release See Rx Instructions .ROUTE .COMPLEX #90 unspecified 03/20/18 [Last Taken Unknown] - History of Present Illness Narrative: Pt is tracheostomy dependent at night and without any assistance during the day. He was found unresponsive and hypoxic this morning and EMS was called. EMS suctioned his trach and applied O2. Upon arrival he continued to be hypoxic at 75% and O2 was increased to 10l per trach. Trach was suctioned again and his SaO2 began to rise into the mid 80"s. Severity: severe Treatment GRADES 1 THROUGH 5 TEACHER: paramedics, oxygen Initiating event: Reports: upper resp illness Frequency of episodes: Reports: frequent episodes Modifying Factors - (Improves): Reports: oxygen Associated Symptoms-Dyspnea: Reports: cough, anxiety Review of Systems - Narrative Narrative: ROS limited due to pt's MS and taken from his mother. - Review of Systems Constitutional: Present: recent illness, fatigue Respiratory: Present: shortness of breath, cough, wheezing Medical History (Last Reviewed 04/12/18 @ 07:55 by Mat Lopez DO) Tracheostomy in place (Chronic) Aortic aneurysm with dissection (Chronic) 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) Onset Date: ~08/31/15 Sleep apnea (Chronic) Anemia (Chronic) Onset Date: ~09/11/12 Diabetes mellitus (Chronic) Asthma (Chronic) Pickwickian syndrome (Chronic) Onset Date: ~09/11/12 Prader-Willi syndrome (Chronic) Onset Date: ~09/11/12 Aortic dissection Back pain CHF (congestive heart failure) Obstructive sleep apnea Pneumonia Recurrent pneumonia Scoliosis yuniel in back Tracheostomy in place alternating vision can only see out of 1 eye at a time Eating disorder Prader-Willi Surgical History: Surgical History (Last Reviewed 04/12/18 @ 07:55 by Mat Lopez DO) Femur fracture H/O gastric bypass Onset Date: ~1975 H/O heart surgery Onset Date: ~04/29/17 aortic dissection-[facility] H/O tracheostomy History of right knee joint replacement Hx of gastric bypass Family History: Family History (Last Reviewed 04/12/18 @ 07:55 by Mat Lopez DO) Grandfather Lung cancer Uncle Lung cancer Other Father Diabetes, depression mother with Anxiety nd Hypertension mother with depression Social History: Preferred Language Mongolian Smoking Status Never smoker Abuse History No History of abuse Psych History No pertinent hx (Last Updated 03/09/18 @ 14:36 by Tim Sharp MD) No Social History Section defined Physical Exam - Physical Exam General Appearance: Present: other - unresponsive except to deep trach suction. Head Exam: Present: normal inspection, no evidence of injury Neck: Present: other - Trach intact and appears normal. Inner cannula not present Respiratory: Present: accessory muscle use, decreased breath sounds Cardiovascular/Chest: Present: tachycardia Neurological Exam: Present: other - responsive to pain/ deep suction. Skin Exam: Present: normal color, warm/dry Progress - Transfer of Care Physician Sign Out: Mat Lopez Receiving Physician: Jason Humphrey Pending Results: Labs, X-ray results Expected Disposition: Admit Departure Clinical Impression: Tracheostomy dependence, Pneumonia, Hypercarbia Respiratory failure with hypoxia Qualifiers: Chronicity: acute on chronic Qualified Code(s): J96.21 - Acute and chronic respiratory failure with hypoxia - Departure Disposition: Still a patient Condition: Poor Referrals: Tim Sharp MD [Primary Care Provider] - <Jason Humphrey - Last Filed: 04/12/18 10:18> Dyspnea - Immun/Allergies/Home Medications Immunizations: IMMUNIZATION HX Immunizations Up to Date Yes History of Influenza Vaccine Yes Hx Pneumococcal Vaccination Yes Medical History (Last Reviewed 04/12/18 @ 07:55 by Mat Lopez DO) Tracheostomy in place (Chronic) Aortic aneurysm with dissection (Chronic) 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) Onset Date: ~08/31/15 Sleep apnea (Chronic) Anemia (Chronic) Onset Date: ~09/11/12 Diabetes mellitus (Chronic) Asthma (Chronic) Pickwickian syndrome (Chronic) Onset Date: ~09/11/12 Prader-Willi syndrome (Chronic) Onset Date: ~09/11/12 Aortic dissection Back pain CHF (congestive heart failure) Obstructive sleep apnea Pneumonia Recurrent pneumonia Scoliosis yuniel in back Tracheostomy in place alternating vision can only see out of 1 eye at a time Eating disorder Prader-Willi Surgical History: Surgical History (Last Reviewed 04/12/18 @ 07:55 by Mat Lopez DO) Femur fracture H/O gastric bypass Onset Date: ~1975 H/O heart surgery Onset Date: ~04/29/17 aortic dissection-[facility] H/O tracheostomy History of right knee joint replacement Hx of gastric bypass Family History: Family History (Last Reviewed 04/12/18 @ 07:55 by Mat Lopez DO) Grandfather Lung cancer Uncle Lung cancer Other Father Diabetes, depression mother with Anxiety nd Hypertension mother with depression Social History: Preferred Language Mongolian Smoking Status Never smoker Abuse History No History of abuse Psych History No pertinent hx (Last Updated 03/09/18 @ 14:36 by Tim Sharp MD) No Social History Section defined Progress - Results and Orders Patient's Lab Results:: I have reviewed the patient's lab results. - Vital Signs Patient's Vital Signs:: I have reviewed the patient's vital signs. Vital Signs: Vital Signs 04/12/18 07:42 04/12/18 08:02 04/12/18 08:14 Temperature 36.2 C Pulse Rate 100 101 H 102 H Respiratory Rate 31 H 36 H 28 H Blood Pressure 166/75 H 142/70 H O2 Sat by Pulse Oximetry 78 L 87 L 91 L 04/12/18 08:16 04/12/18 08:26 04/12/18 08:33 Temperature 36.8 C Pulse Rate 98 98 102 H Respiratory Rate 27 H 30 H 32 H Blood Pressure 142/70 H 130/70 130/70 O2 Sat by Pulse Oximetry 89 L 90 L 87 L 04/12/18 08:38 04/12/18 09:21 04/12/18 09:34 Temperature 37.6 C Pulse Rate 94 85 80 Respiratory Rate 26 H 29 H 30 H Blood Pressure 139/73 128/71 124/57 O2 Sat by Pulse Oximetry 95 93 92 L - EKG EKG #1 EKG read: Interp. by wv EKG Comments: Sinus tachycardia, non-specific ST/T wave changes, no clear STEMI. - X-Ray X-Ray #1 X-Ray: chest Interpretation: Interp. by me X-ray Comments: I reviewed official radiology report - Progress/Reassessment Progress Note-Subjective: 04/12/18 10:15 Patient was checked out to me by Dr Lopez at shift change, please see his note for full H&P. I reviewed ABG and given elevated CO2 patient started on BiPap via trach. Possible aspiration, IV ABx given including Clindamycin which he has responded to well in the past. Decreased CO2 on repeat ABG. IV fludis given, no hypotension. D/W Dr Sharp who will admit the patient. Please see Dr Lopez's note for full H&P.
[2018-04-12 08:25] LABS: ALT 53 U/L (19-67); AST 87 U/L (0-48); Albumin * 3.2 gm/dl (3.4-5.0); Alkaline Phosphatase * 102 U/L (50-170); Anion Gap 13.4 mmol/L (6.8-13.8); BUN/Creatinine Ratio 17.3 (9.0-21.6); Bilirubin, Total 0.6 mg/dL (0.0-1.1); Blood Urea Nitrogen 14 mg/dL (6-23); Ca. Corrected For Albumin 8.8 mg/dL (8.4-10.2); Calcium * 8.5 mg/dL (7.9-10.9); Carbon Dioxide 32.7 mmol/L (24-32.6); Chloride 95 mmol/L (97-106); Glucose * 243 mg/dL (70-110); Potassium 5.1 mmol/L (3.4-4.6); Sodium 136 mmol/L (132-142); Total Protein 7.2 gm/dL (6.2-8.2)
[2018-04-12 08:26] LABS: Troponin I Less than 0.017 ng/mL (0.00-0.10)
[2018-04-12] MEDS ORDERED: CLINDAMYCIN PHOSPHATE 600 MG in DEXTROSE 5 % IN WATER 100 ML IV ONE ×2 (09:13)
[2018-04-12] MEDS ORDERED: cefTRIAXone SODIUM 1,000 MG/100 ML BAG IV ONE (09:21)
[2018-04-12] MEDS ORDERED: NORMAL SALINE 1,000 ML IV ONE (09:43)
[2018-04-12] MEDS ORDERED: ACETAMINOPHEN 1,000 MG/100 ML BTL IV ONE (10:04)
--- NOTE | 2018-04-12 11:58 | HP ---
Chief Complaint - Chief Complaint Date of Service: 04/12/18 Time of Service: 11:47 Chief Complaint: unresponsive History of Present Illness: History is per father and aunt who is in the room the time that I saw the patient patient is very obtunded at this time. His dad reports that for the last 24 hours Tony has been more lethargic. His dad did give him breathing treatments and suctioned him several times and he seemed to improve a little bit last night, day prior to admission. The morning of admission dad went to his room and found that Tony's Oxygen was not connected to his trach tube. His dad attempted to arouse him but could not awaken him. EMS was called and Tony was brought to the hospital via ambulance. In the ambulance his O2 sats were noted to be in the 60s, but were improved with 15 L of O2 but only into the upper 80s to low 90s. Blood gas done in the ER showed him to be hypercapnic with a CO2 of 77 and hypoxic with O2 of 89% on 15 L. He was placed on BiPAP in the ER which did improve his CO2 to 66% and his O2 came up into the low 90s. Patient remains very obtunded, opening his eyes briefly and then closing them again. Chest x- ray did show possible vascular congestion as well as a possible aspiration p neumonia in the right middle lobe. Lungs also were hypoventilated. Patient was admitted due to his acute respiratory failure with hypercapnia and hypoxia and decreased level of consciousness. Patient did have a lactic acid of over 4 and was initially treated for possible sepsis with IV Rocephin and given a normal saline fluid bolus. Clindamycin was also started due to concern for possible aspiration pneumonia. Patient does have a significant past medical history for recurrent aspiration pneumonias. He has had recurrent hospitalizations for this. He has a chronic trach tube which was placed in 97. 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 Is on O2 at night for nocturnal hypoxia. Does have a history of sleep apnea but his dad states that he is not on a CPAP or BiPAP machine. 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) Onset Date: ~08/31/15 Sleep apnea (Chronic) Anemia (Chronic) Onset Date: ~09/11/12 Diabetes mellitus (Chronic) Asthma (Chronic) Pickwickian syndrome (Chronic) Onset Date: ~09/11/12 Prader-Willi syndrome (Chronic) Onset Date: ~09/11/12 Aortic dissection Back pain CHF (congestive heart failure) Obstructive sleep apnea Pneumonia Recurrent pneumonia Scoliosis yuniel in back Tracheostomy in place alternating vision can only see out of 1 eye at a time Eating disorder Prader-Willi Surgical History: Surgical History (Last Reviewed 04/12/18 @ 11:48 by Pat Hilton RN) Femur fracture H/O gastric bypass Onset Date: ~1975 H/O heart surgery Onset Date: ~04/29/17 aortic dissection-[facility] H/O tracheostomy History of right knee joint replacement Hx of gastric bypass Family History: Family History (Last Reviewed 04/12/18 @ 11:48 by Pat Hilton RN) Grandfather Lung cancer Uncle Lung cancer Other Father Diabetes, depression mother with Anxiety nd Hypertension mother with depression Social History: Patient Lives/Resources With Parents Utilized Preferred Language Ecuadorean Smoking Status Never smoker Have you smoked in the past 12 No months Abuse History No History of abuse Psych History No pertinent hx (Last Updated 03/09/18 @ 14:36 by Tim Sharp MD) No Social History Section defined Review Of Systems (GEN) - Review of Systems Generalized/Overall Review: Present: Weakness, Malaise, Fatigue. Absent: Chills, Fever EENTM: Present: No Symptoms Reported Respiratory: Present: Shortness of Breath Cardiac: Present: Edema. Absent: Chest Pain Abdominal: Present: No Symptoms Reported Genitourinary: Present: No Symptoms Reported Musculoskeletal: Present: No Symptoms Reported Neurological: Present: Weakness Skin: Present: No Symptoms Reported Endocrine: Present: No Symptoms Reported Immunizations: IMMUNIZATION HX Immunizations Up to Date Yes History of Influenza Vaccine Yes Hx Pneumococcal Vaccination Yes Allergies/Adverse Reactions: Allergies Allergy/AdvReac Type Severity Reaction Status Date / Time No Known Allergies Allergy Verified 04/12/18 11:48 Home Medications: HOME MEDICATIONS Docusate Sodium 100 mg PO BID PRN 04/26/17 [Last Taken 10/22/17] Fluticasone Propionate [Flovent Hfa] 220 mcg IH BID 04/26/17 [Last Taken 02/24/18] metFORMIN HCL [Glucophage] 850 mg PO BIDWM 04/26/17 [Last Taken 02/24/18] Metoprolol Tartrate [Lopressor] 100 mg PO BID 05/17/17 [Last Taken 02/24/18] Multivitamin [Multivitamins] 1 ea PO DAILY 05/17/17 [Last Taken 02/24/18] amLODIPine BESYLATE [Norvasc] 10 mg PO DAILY 05/17/17 [Last Taken 02/24/18] montelukast 10 mg tablet 10 mg PO HS 30 Days #30 tab 10/31/17 [Last Taken 02/24/18] ranitidine 150 mg tablet 150 mg PO BID #60 tab 11/30/17 [Last Taken 02/24/18] cetirizine 10 mg capsule 10 mg PO HS #30 cap 01/02/18 [Last Taken 02/24/18] Chivo #5 Tracheostomy tube w/15mm adapter, regular length 6.2mm ID, 9mm OD, 68mm length 0 .ROUTE .MEDSUPPLY #4 ea 01/23/18 [Last Taken Unknown] Acetaminophen [Tylenol] 1,000 mg PO Q6H PRN tab 02/27/18 [Last Taken Unknown] Clindamycin HCl [Cleocin] 600 mg PO Q8H #21 cap 02/27/18 [Last Taken Unknown] Albuterol Sulfate/Ipratropium [Duoneb 2.5-0.5MG/3ML Soln] 3 ml INHALATION Q4HRT PRN 04/12/18 [Last Taken Unknown] Aspirin 81 mg PO BID 04/12/18 [Last Taken Unknown] Calcium Carb/Vitamin D3/Vit K1 [Calcium + D Soft Chewable Tab] 1 ea PO DAILY 04/12/18 [Last Taken Unknown] Furosemide [Lasix] 20 mg PO DAILY 04/12/18 [Last Taken Unknown] Potassium Chloride [Klor-Con 10] See Rx Instructions PO DAILY 04/12/18 [Last Taken Unknown] Exam - Exam Vital Signs: Vital Signs - Last Taken Temp 37.3 C 04/12/18 10:30 Pulse 80 04/12/18 10:30 Resp 20 04/12/18 10:30 BP 144/91 H 04/12/18 10:30 Pulse Ox 89 L 04/12/18 10:30 Constitutional: Present: Obtunded, Other - Patient looks very fatigued and ill., Elderly, Obese ENT Exam: Present: hearing grossly normal, other - Patient would open his eyes to verbal stimuli but quickly closes them again. Neck: Present: supple, other - Patient has tracheostomy tube that is connected to BiPAP. Respiratory: Present: no respiratory distress, decreased breath sounds, rales - RML and karina bases, wheezing Cardiovascular/Chest: Present: regular rate, rhythm, no murmur Peripheral Pulses: dorsalis-pedis (R): 1+, dorsalis-pedis (L): 1+ Abdomen: Present: Normal bowel sounds, soft, nontender, nondistended, no rebound tenderness, no hepatospenomegaly Extremity: Present: lower extremity edema, pedal edema. Absent: calf tenderness Skin Exam: Present: pallor Appearance: Present: neat Eye contact: Present: cooperative Thoughts: Present: no apparent hallucination Diagnostic Studies: Abnormal Lab Results 04/12/18 04/12/18 04/12/18 Range/Units 07:56 07:56 07:56 RBC 4.53 L (4.7-6.0) M/mm3 Hgb 12.5 L (13.5-18.0) gm/dL Hct 41.7 L (42.0-52.0) % MCHC 30.0 L (32-36) g/dl Neutrophils % 79.1 H (42-75.0) % Lymphocytes % 13.3 L (20-51) % Neutrophils # 6.9 H (1.3-6.0) K/mm3 Lymphocytes # 1.15 L (1.5-3.5) k/mm3 pCO2 (35.0-48.0) mmHg pO2 (83.0-108.0) mmHg HCO3 (21.0-28.0) mmol/L Total CO2 (19.0-24.0) mmol/L Base Excess (-2.0-3.0) mmol/L ABG pH (7.35-7.45) ABG O2 Sat (Measured) (94.0-98.0) % Potassium 5.1 H D (3.4-4.6) mmol/L Chloride 95 L (97-106) mmol/L Carbon Dioxide 32.7 H (24-32.6) mmol/L Random Glucose 243 H (70-110) mg/dL Lactic Acid, Venous 4.6 H* (0.4-2.0) mmol/L AST 87 H (0-48) U/L B-Natriuretic Peptide (5-175) pg/mL Albumin 3.2 L (3.4-5.0) gm/dl 04/12/18 04/12/18 04/12/18 Range/Units 08:00 09:31 09:49 RBC (4.7-6.0) M/mm3 Hgb (13.5-18.0) gm/dL Hct (42.0-52.0) % MCHC (32-36) g/dl Neutrophils % (42-75.0) % Lymphocytes % (20-51) % Neutrophils # (1.3-6.0) K/mm3 Lymphocytes # (1.5-3.5) k/mm3 pCO2 77.3 H* 62.2 H (35.0-48.0) mmHg pO2 64.5 L 60.8 L (83.0-108.0) mmHg HCO3 32.3 H 36.6 H (21.0-28.0) mmol/L Total CO2 34.7 H 38.5 H (19.0-24.0) mmol/L Base Excess 9.5 H (-2.0-3.0) mmol/L ABG pH 7.24 L (7.35-7.45) ABG O2 Sat (Measured) 87.8 L 90.3 L (94.0-98.0) % Potassium (3.4-4.6) mmol/L Chloride (97-106) mmol/L Carbon Dioxide (24-32.6) mmol/L Random Glucose (70-110) mg/dL Lactic Acid, Venous (0.4-2.0) mmol/L AST (0-48) U/L B-Natriuretic Peptide 1874 H (5-175) pg/mL Albumin (3.4-5.0) gm/dl Laboratory Results WBC 8.7 K/mm3 (4.0-10.5) 04/12/18 07:56 RBC 4.53 M/mm3 (4.7-6.0) L 04/12/18 07:56 Hgb 12.5 gm/dL (13.5-18.0) L 04/12/18 07:56 Hct 41.7 % (42.0-52.0) L 04/12/18 07:56 MCV 92.1 fl (78-100) 04/12/18 07:56 MCH 27.6 pg (27-31) 04/12/18 07:56 MCHC 30.0 g/dl (32-36) L 04/12/18 07:56 RDW 14.0 % (11.5-14.0) 04/12/18 07:56 Plt Count 204 K/mm3 (150-450) 04/12/18 07:56 MPV 8.6 fl (8-11.3) 04/12/18 07:56 Immature Gran % (Auto) 0.30 % (0.001-0.429) 04/12/18 07:56 Immature Gran # (Auto) 0.03 K/mm3 (0.000-0.0310) 04/12/18 07:56 Neutrophils % 79.1 % (42-75.0) H 04/12/18 07:56 Lymphocytes % 13.3 % (20-51) L 04/12/18 07:56 Monocytes % 6.2 % (0.0-9) 04/12/18 07:56 Eosinophils % 0.5 % (0.0-3.0) 04/12/18 07:56 Basophils % 0.6 % (0.0-1.0) 04/12/18 07:56 Nucleated RBC % 0.0 k/mm3 (0-1) 04/12/18 07:56 Neutrophils # 6.9 K/mm3 (1.3-6.0) H 04/12/18 07:56 Lymphocytes # 1.15 k/mm3 (1.5-3.5) L 04/12/18 07:56 Monocytes # 0.5 k/mm3 (0.0-1.0) 04/12/18 07:56 Eosinophils # 0.0 k/mm3 (0.0-0.7) 04/12/18 07:56 Absolute Basophils 0.1 k/mm3 (0.0-0.1) 04/12/18 07:56 pCO2 62.2 mmHg (35.0-48.0) H 04/12/18 09:31 pO2 60.8 mmHg (83.0-108.0) L 04/12/18 09:31 HCO3 36.6 mmol/L (21.0-28.0) H 04/12/18 09:31 Total CO2 38.5 mmol/L (19.0-24.0) H 04/12/18 09:31 Base Excess 9.5 mmol/L (-2.0-3.0) H 04/12/18 09:31 ABG pH 7.39 (7.35-7.45) 04/12/18 09:31 ABG O2 Sat (Measured) 90.3 % (94.0-98.0) L 04/12/18 09:31 Sodium 136 mmol/L (132-142) 04/12/18 07:56 Plasma Sodium 138 mmol/L (130-142) 04/12/18 07:56 Potassium 5.1 mmol/L (3.4-4.6) H D 04/12/18 07:56 Chloride 95 mmol/L (97-106) L 04/12/18 07:56 Carbon Dioxide 32.7 mmol/L (24-32.6) H 04/12/18 07:56 Anion Gap 13.4 mmol/L (6.8-13.8) 04/12/18 07:56 BUN 14 mg/dL (6-23) 04/12/18 07:56 Creatinine 0.81 mg/dL (0.4-1.4) 04/12/18 07:56 Est GFR (Non-Af Amer) 104 mL/min (60-130) D 04/12/18 07:56 BUN/Creatinine Ratio 17.3 (9.0-21.6) 04/12/18 07:56 Random Glucose 243 mg/dL (70-110) H 04/12/18 07:56 Lactic Acid, Venous 4.6 mmol/L (0.4-2.0) H* 04/12/18 07:56 Calcium 8.5 mg/dL (7.9-10.9) 04/12/18 07:56 Calcium Adj for Albumin 8.8 mg/dL (8.4-10.2) 04/12/18 07:56 Total Bilirubin 0.6 mg/dL (0.0-1.1) 04/12/18 07:56 AST 87 U/L (0-48) H 04/12/18 07:56 ALT 53 U/L (19-67) 04/12/18 07:56 Alkaline Phosphatase 102 U/L (50-170) 04/12/18 07:56 Troponin I Less than 0.017 ng/mL (0.00-0.10) 04/12/18 07:56 B-Natriuretic Peptide 1874 pg/mL (5-175) H 04/12/18 09:49 Total Protein 7.2 gm/dL (6.2-8.2) 04/12/18 07:56 Albumin 3.2 gm/dl (3.4-5.0) L 04/12/18 07:56 Influenza Type A Ag Negative (NEGATIVE) 04/12/18 08:00 Influenza Type B Ag Negative (NEGATIVE) 04/12/18 08:00 Assessment/Plan - Assessment/Plan (1) Respiratory failure with hypoxia and hypercapnia Assessment: due to infection (CXR shows possible aspiration pneumonia and lactic acidosis, but no leukocytosis or fever) or possibly cardiac with CHF (BNP is elevated and he is very edematous and CXR shows edema) or combination of both. Will do IV clindamycin and IV lasix. Hold fluids for now, despite concern for sepsis (given elevated lactic acidosis and being obtunded) due to him already being volume overloaded. Will keep him on BIPAP via tracheostomy for now due to his hypercapnea. Will repeat ABG in the am, but give him at least some time to rest and recover. Problem: Acute Qualifiers: Chronicity: acute Qualified Code(s): J96.01 - Acute respiratory failure with hypoxia; J96.02 - Acute respiratory failure with hypercapnia (2) CHF (congestive heart failure) Assessment: will do IV lasix and place kurtz for close monitoring of I/O's,with daily weights. Will repeat Trop I to be sure it's not AMI issue, but initial was < 0.017 and he has had sx for > 24 hrs. Problem: Acute Qualifiers: Heart failure type: combined systolic and diastolic Heart failure chronicity: acute on chronic Qualified Code(s): I50.43 - Acute on chronic combined systolic (congestive) and diastolic (congestive) heart failure (3) Aspiration pneumonia due to food (regurgitated) Assessment: will do IV clindamycin Problem: Acute Qualifiers: Laterality: right Lung location: middle lobe of lung Qualified Code(s): J69.0 - Pneumonitis due to inhalation of food and vomit (4) Dependence on tracheostomy Assessment: use this for BIPAP Problem: Chronic (5) Diabetes mellitus Assessment: will do SSI and scheduled accuchecks to keep sugars < 200 Problem: Chronic Qualifiers: Diabetes mellitus type: type 2 Diabetes mellitus complication status: without complication (6) Pickwickian syndrome Problem: Chronic (7) Discharge planning issues Assessment: anticipate him being here a min. of 2 midnights. He is very ill and I have already spoken to family about him maybe not surviving this episode. We discussed hospice consult. Will give it at least 24hrs of trying different interventions before we decide ultimate direction and plan. If he does survive this episode consider palliative care vs hospice on discharge. Problem: Acute
[2018-04-12] MEDS: FUROSEMIDE 10 MG/ML VIAL IV SCH ×2 (12:48→22:49)
[2018-04-12] MEDS ORDERED: ALBUTEROL SULFATE/IPRATROPIUM 3 ML NEBU IH PRN (12:54)
[2018-04-12] MEDS ORDERED: ACETAMINOPHEN 500 MG TABLET PO PRN (12:54)
[2018-04-12] MEDS: METOPROLOL TARTRATE 100 MG TABLET PO SCH ×2 (13:57→22:50)
[2018-04-12] MEDS: FAMOTIDINE 20 MG TABLET PO SCH ×2 (13:57→22:50)
[2018-04-12] MEDS: INSULIN REGULAR, HUMAN 100 UNITS/ML VIAL SC SCH ×2 (16:56→22:40)
[2018-04-12] MEDS: DEXTROSE 5%-0.5 NORMAL SALINE 1,000 ML IV PRN (17:27)
[2018-04-12] MEDS: CLINDAMYCIN PHOSPHATE 600 MG in DEXTROSE 5 % IN WATER 100 ML IV SCH ×2 (19:09)
[2018-04-13] MEDS: CLINDAMYCIN PHOSPHATE 600 MG in DEXTROSE 5 % IN WATER 100 ML IV SCH ×4 (02:53→12:31)
[2018-04-13 05:46] LABS: Albumin * 3.1 gm/dl (3.4-5.0); Anion Gap 9.9 mmol/L (6.8-13.8); BUN/Creatinine Ratio 13.6 (9.0-21.6); Bilirubin, Total 0.3 mg/dL (0.0-1.1); Ca. Corrected For Albumin 8.7 mg/dL (8.4-10.2); Calcium * 8.3 mg/dL (7.9-10.9); Carbon Dioxide 39.1 mmol/L (24-32.6); Total Protein 6.4 gm/dL (6.2-8.2)
[2018-04-13] MEDS: INSULIN REGULAR, HUMAN 100 UNITS/ML VIAL SC SCH ×3 (06:15→17:17)
--- NOTE | 2018-04-13 07:35 | PN ---
Subjective - Date and Time Seen Date: 04/13/18 Time: 07:22 Subjective Narrative: Still very sleepy, but is more awake at times. Despite increasing the iPAP last pm to 22 his PCO2 remains high at 77. RT states poor AE and that no nebs have been done as they're written prn. Objective - Review of Systems Generalized/Overall Review: Reports: Weakness, Malaise, Fatigue. Denies: Chills, Fever EENTM: Reports: No Symptoms Reported Respiratory: Reports: Shortness of Breath, Wheezing Cardiac: Reports: Edema. Denies: Chest Pain, Palpitations Abdominal: Reports: No Symptoms Reported Genitourinary Symptoms: Reports: Incontinent Musculoskeletal Complaints: Reports: No Symptoms Reported Neurological: Reports: Weakness Skin: Reports: No Symptoms Reported Endocrine: Reports: No Symptoms Reported - Vitals Vitals: Last Vital Signs Temp 37 C 04/13/18 06:57 Pulse 68 04/13/18 06:57 Resp 15 04/13/18 06:57 BP 135/67 04/13/18 06:57 Pulse Ox 91 L 04/13/18 06:57 - Abnormal Lab Findings Abnormal Lab Findings: Abnormal Lab Results 04/12/18 04/12/18 04/12/18 Range/Units 07:56 07:56 07:56 RBC 4.53 L (4.7-6.0) M/mm3 Hgb 12.5 L (13.5-18.0) gm/dL Hct 41.7 L (42.0-52.0) % MCHC 30.0 L (32-36) g/dl Neutrophils % 79.1 H (42-75.0) % Lymphocytes % 13.3 L (20-51) % Neutrophils # 6.9 H (1.3-6.0) K/mm3 Lymphocytes # 1.15 L (1.5-3.5) k/mm3 pCO2 (35.0-48.0) mmHg pO2 (83.0-108.0) mmHg HCO3 (21.0-28.0) mmol/L Total CO2 (19.0-24.0) mmol/L Base Excess (-2.0-3.0) mmol/L ABG pH (7.35-7.45) ABG O2 Sat (Measured) (94.0-98.0) % Potassium 5.1 H D (3.4-4.6) mmol/L Chloride 95 L (97-106) mmol/L Carbon Dioxide 32.7 H (24-32.6) mmol/L Est GFR (Non-Af Amer) (60-130) mL/min Random Glucose 243 H (70-110) mg/dL Lactic Acid, Venous 4.6 H* (0.4-2.0) mmol/L AST 87 H (0-48) U/L B-Natriuretic Peptide (5-175) pg/mL Albumin 3.2 L (3.4-5.0) gm/dl 04/12/18 04/12/18 04/12/18 Range/Units 08:00 09:31 09:49 RBC (4.7-6.0) M/mm3 Hgb (13.5-18.0) gm/dL Hct (42.0-52.0) % MCHC (32-36) g/dl Neutrophils % (42-75.0) % Lymphocytes % (20-51) % Neutrophils # (1.3-6.0) K/mm3 Lymphocytes # (1.5-3.5) k/mm3 pCO2 77.3 H* 62.2 H (35.0-48.0) mmHg pO2 64.5 L 60.8 L (83.0-108.0) mmHg HCO3 32.3 H 36.6 H (21.0-28.0) mmol/L Total CO2 34.7 H 38.5 H (19.0-24.0) mmol/L Base Excess 9.5 H (-2.0-3.0) mmol/L ABG pH 7.24 L (7.35-7.45) ABG O2 Sat (Measured) 87.8 L 90.3 L (94.0-98.0) % Potassium (3.4-4.6) mmol/L Chloride (97-106) mmol/L Carbon Dioxide (24-32.6) mmol/L Est GFR (Non-Af Amer) (60-130) mL/min Random Glucose (70-110) mg/dL Lactic Acid, Venous (0.4-2.0) mmol/L AST (0-48) U/L B-Natriuretic Peptide 1874 H (5-175) pg/mL Albumin (3.4-5.0) gm/dl 04/13/18 04/13/18 Range/Units 05:05 05:25 RBC (4.7-6.0) M/mm3 Hgb (13.5-18.0) gm/dL Hct (42.0-52.0) % MCHC (32-36) g/dl Neutrophils % (42-75.0) % Lymphocytes % (20-51) % Neutrophils # (1.3-6.0) K/mm3 Lymphocytes # (1.5-3.5) k/mm3 pCO2 77.5 H* (35.0-48.0) mmHg pO2 72.5 L (83.0-108.0) mmHg HCO3 39.3 H (21.0-28.0) mmol/L Total CO2 41.7 H (19.0-24.0) mmol/L Base Excess 10.4 H (-2.0-3.0) mmol/L ABG pH 7.32 L (7.35-7.45) ABG O2 Sat (Measured) 92.6 L (94.0-98.0) % Potassium (3.4-4.6) mmol/L Chloride 93 L (97-106) mmol/L Carbon Dioxide 39.1 H (24-32.6) mmol/L Est GFR (Non-Af Amer) 210 H D (60-130) mL/min Random Glucose 151 H D (70-110) mg/dL Lactic Acid, Venous (0.4-2.0) mmol/L AST (0-48) U/L B-Natriuretic Peptide (5-175) pg/mL Albumin 3.1 L (3.4-5.0) gm/dl - EKG/Xray Findings EKG: NSR - Exam Constitutional: Present: Mild distress, Moderate distress, Lethargic, Obese, Looks Older than stated age ENT Exam: Present: hearing grossly normal Neck: Present: supple Respiratory: Present: wheezing, expiration (prolonged), other - on BIPAP so patient not needing to use respiratory effort/muscles. Cardiovascular/Chest: Present: regular rate, rhythm, no murmur, edema Abdomen: Present: Normal bowel sounds, soft, nontender, nondistended, no rebound tenderness, no hepatospenomegaly, obese Extremity: Present: lower extremity edema, pedal edema Skin Exam: Present: pallor Neurologic: Present: normal mood/affect, other - very tired appearing. opens eyes when spoken too, but quickly closes them again. Appearance: Present: no memory impairment Eye contact: Present: cooperative Thoughts: Present: no apparent hallucination Assessment/Plan - Problems/Diagnosis (1) Respiratory failure with hypoxia and hypercapnia Problem: Acute Qualifiers: Chronicity: acute Qualified Code(s): J96.01 - Acute respiratory failure with hypoxia; J96.02 - Acute respiratory failure with hypercapnia Narrative: pt. continues to be hypercapnic despite increase in IPAP on his BIPAP. Will do scheduled nebs to see if this improves things. consider doing IV steroids to cover asthma exacerbation as a cause. consider increasing rate on BIPAP to try to blow off some CO2. will repeat ABG around noon to see if changes have any benefit. (2) CHF (congestive heart failure) Problem: Acute Qualifiers: Heart failure type: combined systolic and diastolic Heart failure chronicity: acute on chronic Qualified Code(s): I50.43 - Acute on chronic combined systolic (congestive) and diastolic (congestive) heart failure Narrative: Pt. has diuresed quite a bit, but still is quite edematous. Rales in his lungs have improved. Will continue IV lasix for now, following labs to be sure K doesn't drop too much. (3) Aspiration pneumonia due to food (regurgitated) Problem: Acute Qualifiers: Laterality: right Lung location: middle lobe of lung Qualified Code(s): J69.0 - Pneumonitis due to inhalation of food and vomit Narrative: continue IV clindamycin (4) Dependence on tracheostomy Problem: Chronic (5) Diabetes mellitus Problem: Chronic Qualifiers: Diabetes mellitus type: type 2 Diabetes mellitus complication status: without complication Narrative: sugars are 151 this am. continue SSI. Pt. appears to be too tired to take much PO. (6) Pickwickian syndrome Problem: Chronic Narrative: definitely confounds his recovery. will continue BIPAP and look to try to acquire a BIPAP for him to take home should he recover to that point as this should help diminish his recurring hospitalizations. (7) Discharge planning issues Problem: Acute Narrative: Pt. improved very little since admit yesterday. Will make changes as above. Have spoken with family in regards to hospice and palliative care. They are accepting of either, depending on how his condition goes. I don't see him getting out of the hospital anytime soon unless we can start improving his gas exchange on the BIPAP. Anticipate him being here for several more days.
[2018-04-13] MEDS: DEXTROSE 5%-0.5 NORMAL SALINE 1,000 ML IV PRN (07:43)
[2018-04-13] MEDS: POTASSIUM CHLORIDE IN WATER 100 ML IV SCH ×4 (08:27→14:47)
[2018-04-13] MEDS: ALBUTEROL SULFATE/IPRATROPIUM 3 ML NEBU IH SCH ×5 (08:37→23:21)
[2018-04-13] MEDS: METOPROLOL TARTRATE 100 MG TABLET PO SCH (08:59)
[2018-04-13] MEDS: FAMOTIDINE 20 MG TABLET PO SCH (08:59)
[2018-04-13] MEDS: FUROSEMIDE 10 MG/ML VIAL IV SCH (10:31)
[2018-04-13 10:44] VITALS: BP 129/71
[2018-04-13 14:22] LABS: Hematocrit 39.1 % (42.0-52.0); Hemoglobin 11.9 gm/dL (13.5-18.0); Mean Cell Volume 92.2 fl (78-100); Mean Corpuscular Hemoglobin 28.1 pg (27-31); Mean Corpuscular Hgb Conc 30.4 g/dl (32-36); Mean Platelet Volume 8.6 fl (8-11.3); Neutrophil # 6.5 K/mm3 (1.3-6.0); Neutrophil % 78.9 % (42-75.0); Platelet Count 175 K/mm3 (150-450); Red Blood Count 4.24 M/mm3 (4.7-6.0); White Blood Count 8.3 K/mm3 (4.0-10.5)
[2018-04-13] MEDS ORDERED: METHYLPREDNISOLONE SOD SUCC/PF 40 MG/ML VIAL IV ONE (14:23)
[2018-04-13 14:37] LABS: Albumin * 3.1 gm/dl (3.4-5.0); Anion Gap 6.6 mmol/L (6.8-13.8); BUN/Creatinine Ratio 10.2 (9.0-21.6); Bilirubin, Total 0.3 mg/dL (0.0-1.1); Ca. Corrected For Albumin 8.8 mg/dL (8.4-10.2); Calcium * 8.4 mg/dL (7.9-10.9); Potassium 3.6 mmol/L (3.4-4.6); Total Protein 6.9 gm/dL (6.2-8.2)
[2018-04-13 14:45] LABS: Troponin I 0.021 ng/mL (0.00-0.10)
[2018-04-13] MEDS: MORPHINE SULFATE 10 MG/ML SYRG IV PRN ×2 (14:50→17:12)
[2018-04-13] MEDS: MORPHINE SULFATE 10 MG/0.5 ML SYRINGE PO PRN ×5 (20:10→23:54)
[2018-04-13] MEDS ORDERED: SCOPOLAMINE HYDROBROMIDE 1.5 MG PATC TD SCH (21:00)
[2018-04-14] MEDS: CLINDAMYCIN PHOSPHATE 600 MG in DEXTROSE 5 % IN WATER 100 ML IV SCH ×4 (01:32→04:51)
[2018-04-14] MEDS: METOPROLOL TARTRATE 100 MG TABLET PO SCH (01:33)
[2018-04-14] MEDS: INSULIN REGULAR, HUMAN 100 UNITS/ML VIAL SC SCH (01:33)
[2018-04-14] MEDS: MORPHINE SULFATE 10 MG/0.5 ML SYRINGE PO PRN ×4 (01:40→06:51)
[2018-04-14] MEDS: ALBUTEROL SULFATE/IPRATROPIUM 3 ML NEBU IH SCH ×2 (02:34→06:29)
[2018-04-14] MEDS ORDERED: ALBUTEROL SULFATE/IPRATROPIUM 3 ML NEBU IH PRN (06:47)
--- NOTE | 2018-04-14 06:52 | PN ---
Edgar Note - Interim Date: 04/14/18 Time: 06:48 Narrative: 04/14/18 06:48 Pt. continues to open eyes to verbal stimuli and shake his head to yes/no questions. No verbal communication. Morphine given multiple times in the night with patient comfortable but still able to arouse. Family has been with him through the night and he has been visited by [facility] guest relations manager and friends. He is comfortable this am. Opens eyes to voice. Denies any pain or discomfort. Family bedside. Lungs clear with fair AE karina, pt. is tachypneic. Trach with humidified O2 flowing. Heart is regular. Pt. is edematous. A/P: Believe patient is actively dying due to respiratory failure with hypercapnea that has not corrected with BIPAP settings at maximum levels, leading to acidosis. Pt. has been made comfort care.
--- NOTE | 2018-04-16 08:39 | DS ---
Discharge Summary - Provider Primary Care Provider: Tim Sharp Admitting Clinician: Tim Sharp Attending Physician on Admission: Tim Sharp - Date and Time Date of : 04/14/18 Time of : 08:11 - Diagnosis/Cause of (1) Respiratory failure with hypoxia and hypercapnia Problems: Acute (2) CHF (congestive heart failure) Problems: Acute (3) Aspiration pneumonia due to food (regurgitated) Problems: Acute (4) Dependence on tracheostomy Problems: Chronic (5) Diabetes mellitus Problems: Chronic (6) Pickwickian syndrome Problems: Chronic (7) Discharge planning issues Problems: Acute - Summary Details (narrative): Pt. admitted for respiratory distress with hypoxia and hypercapnia. Initially he improved with BIPAP use, but soon began to worsen and continued to worsen despite maximiziing BIPAP settings. Family and patient were consulted and comfort care was started and patient withing 15hrs with BIPAP being stopped after all family members had arrived bedside. Pt. was made comfortable, dosing morphine prn. Procedures Performed: none - Additional Data Confirmation of as documented by pronouncing clinician: no pulse, no respirations, no heart sounds, pupils fixed and dilated Family: at bedside Practitioner(Attending/PCP) notified: Yes Attending physician: Tim Sharp - saw patient shortly after . business continuity management director and family surrounding him. Prayer and condolensces. Was code activated: No Autopsy requested: No Bead Picker notified: No [employer] Bank notified: Yes Advance Directives: Yes Hospice patient: No
== END 2018-04-14 08:11 | disposition expired | DRG 177 ==
LOC: ER 07:35 → MS 10:18
PROVIDERS: ADMIT Family Medicine; ATTEND Family Medicine
DX: J96.21 Acute and chronic respiratory failure with hypoxia; J69.0 Pneumonitis due to inhalation of food and vomit; J96.22 Acute and chronic respiratory failure with hypercapnia; Z99.81 Dependence on supplemental oxygen; E11.9 Type 2 diabetes mellitus without complications; I50.9 Heart failure, unspecified; J45.909 Unspecified asthma, uncomplicated
CPT/HCPCS: 36415; 36600; 71010; 71045; 80053; 82803; 83519; 83605; 83880; 84484; 85025; 87040; 87400; 87449; 93005; 94640; 94660; 94664; 94760; 96365; 99285; J0131